=== PATIENT | female | born 1990 | race African-American/Black ===

== ENCOUNTER 2020-04-19 12:48 | Outpatient (CLI) | payer BC, SELFPAY ==
--- NOTE | ~2020-04-19 | US_ITS ---
EXAMINATION: US pelvic complete w TV EXAM DATE: 04/19/2020 13:29 INDICATION: R10.2 - Pelvic and perineal pain . TECHNIQUE: Pelvic transabdominal and transvaginal sonogram was performed. There are multiple graysca le and Doppler images available for interpretation. Comparison is made to prior examination from 06/13. FINDINGS: Uterus measures 8.5 x 4.1 x 4.1 cm, and is morphologically normal. Endometrial stripe erika sures 16 mm, within normal limits. There is no free pelvic fluid. Right adnexa: The ovary measures 3.0 x 3.5 x 2.6 cm and is morphologically normal. Ovarian vascular f low confirmed. Left adnexa: The ovary measures 2.6 x 2.5 x 1.9 cm and is morphologically normal. Ovarian vascular fl ow confirmed. IMPRESSION: 1. Unremarkable pelvic ultrasound exam. Reviewed, dictated and finalized at location B. AL NURSERY WORKER
== END 2020-04-19 12:49 | disposition home or self-care (01) ==
LOC: ANHIMG 12:55
PROVIDERS: PCP Internal Medicine; Visit Provider Obstetrics & Gynecology
DX: R10.2 Pelvic and perineal pain (principal)
CPT/HCPCS: 76830; 76856

== ENCOUNTER 2022-05-22 20:15 | Emergency (ER) | payer BC, SELFPAY ==
[2022-05-22 20:23] VITALS: BP 132/70; PULSE 75; RESP 16; TEMP 36.4; O2SAT 98
--- NOTE | 2022-05-22 21:04 | ED.WOUNDLAC ---
HPI - Wound/Laceration General Chief Complaint: Wound/Laceration Stated Complaint: laceration left leg Time Seen by Provider: 05/22/22 20:27 History of Present Illness HPI narrative: 31-year-old female here for evaluation of laceration sustained to her left thigh at some point during the night last night. Patient states that she woke up with the laceration and is unsure what it came from, believes it might of been a pin from dry cleaning. She placed a Band-Aid over it but had difficulty controlling the bleeding. She sent a photo to her primary care doctor who recommended ED eval for closure. Her tetanus is not up-to-date. Related Data Home Medications Medication Instructions Recorded Confirmed sertraline 25 mg tablet 25 mg PO DAILY 08/02/21 08/03/21 Allergies Allergy/AdvReac Type Severity Reaction Status Date / Time No Known Allergies Allergy Mild Verified 08/02/21 13:18 Review of Systems Review of Systems: Gen.: Denies fevers or chills Eyes: Denies eye pain or visual change ENT: Denies congestion Respiratory: Denies shortness of breath or cough CV: Denies chest pain or palpitations GI: Denies abdominal pain nausea, emesis or diarrhea denies burning, urgency, frequency or hematuria Musculoskeletal: denies back pain or muscle pain Neuro: Denies numbness, tingling, weakness or focal weakness Skin: Reports laceration to left thigh Except as documented, all other systems reviewed and negative [facility] Past Medical History Medical History Menorrhagia Urinary symptom or sign Surgical History Surgical History S/P lumpectomy, right breast 2011 Family History Family History Grandparent Family history of malignant neoplasm of breast Social History Social History Smoking status: Never smoker Second hand tobacco smoke exposure: No Alcohol intake: current Exam Narrative: Gen: Alert, oriented, no acute distress Eyes: EOMI, no icterus Pulm: Respirations even and unlabored, symmetric thorax expansion, no audible stridor or visible cyanosis CV: Regular rate per telemetry GI: No distension, no voluntary/involuntary guarding Neuro: AOx4, moves all extremities without apparent difficulty or weakness, follows commands Skin: There is a 1 cm superficial linear laceration to her left mid thigh with no active bleeding. Psych: Normal mood/affect, insight/judgement good, adequate fund of knowledge, recent/remote memory intact Course Vital Signs Vital signs: Vital Signs Temperature 97.5 F L 05/22/22 20: Pulse Rate 75 05/22/22 20:23 Respiratory Rate 16 05/22/22 20:23 Blood Pressure 132/70 05/22/22 20:23 Pulse Oximetry 98 05/22/22 20:23 Temperature 97.5 F L 05/22/22 20: Pulse Rate 75 05/22/22 20:23 Respiratory Rate 16 05/22/22 20:23 Blood Pressure 132/70 05/22/22 20:23 Pulse Oximetry 98 05/22/22 20:23 Procedures Laceration Laceration 1: Date: 05/22/22 Time: 21:00 Site: lower extremity Size (cm): 1 Description: linear Depth: simple, single layer Local Anesthetic: lidocaine 1% Amount of anesthesia used (mL): 2 Pre-repair: wound explored and irrigated ====== Skin Level ====== Skin layer closed with: other (4-o ethilon) Number of sutures: 3 Technique: simple, interrupted ====== Subcutaneous Layer ====== ====== Muscle Layer ====== ====== Tendon Layer ====== MDM - Wound/Laceration MDM Narrative Medical decision making narrative: 31-year-old female here for evaluation of a laceration to her left anterior thigh sustained at some point during the evening last night on an unknown object. Laceration was closed with simple interrupted sutur
[2022-05-22] MEDS: TETANUS,DIPHTHERIA,AC PERTUSSIS ADULT (0.5 ML) BOOSTRIX IM (21:49)
== END 2022-05-22 22:00 | disposition home or self-care (01) ==
PROVIDERS: Emergency Provider Physician Assistant; PCP Internal Medicine
DX: S71.112A Laceration without foreign body, left thigh, initial encounter (principal); X58.XXXA Exposure to other specified factors, initial encounter; Z23 Encounter for immunization
CPT/HCPCS: 12001; 90471; 90715; 99282

== ENCOUNTER 2022-08-02 09:32 | Emergency (ER) | payer BC, SELFPAY ==
--- NOTE | ~2022-08-02 | CT_ITS ---
EXAMINATION: CT cervical spine wo con DATE: 08/02/2022 14:04 INDICATION: Left neck pain. Left shoulder pain. TECHNIQUE: Computed tomography (CT) of the cervical spine was performed without intravenous contrast. Automated exposure control and iterative reconstruction technique were employed. The dose-length pro duct was 374.55 mGy-cm. COMPARISON: None FINDINGS: There is 4 degrees levocurvature of cervical spine. There is mild kyphosis of cervical spin e. Vertebral body heights and intervertebral disc heights are normal. The following disc levels are s pecifically discussed: C2-C3: There is no uncovertebral joint osteoarthritis. There is no facet joint osteoarthritis. There is no neural foraminal stenosis. There is no central canal stenosis. C3-C4: There is no uncovertebral joint osteoarthritis. There is mild bilateral facet joint osteoarthr itis. There is no neural foraminal stenosis. There is no central canal stenosis. C4-C5 through C6-C7: There is no uncovertebral joint osteoarthritis. There is no facet joint osteoart hritis. There is no neural foraminal stenosis. There is no central canal stenosis. C7-T1: There is no uncovertebral joint osteoarthritis. There is mild bilateral facet joint osteoarthr itis. There is no neural foraminal stenosis. There is no central canal stenosis. IMPRESSION: 1. Mild cervical facet joint osteoarthritis. Reviewed, dictated and finalized at location A.
--- NOTE | ~2022-08-02 | XR_ITS ---
EXAMINATION: XR shoulder LT min 2V DATE: 08/02/2022 14:11 INDICATION: Left shoulder pain. TECHNIQUE: 4 views of left shoulder were obtained. COMPARISON: None. FINDINGS: Bone alignment is normal. No fracture. Joint spaces are well maintained. IMPRESSION: 1. Normal left shoulder. Reviewed, dictated and finalized at location A. IMPRESSION: 1. Normal left shoulder.
[2022-08-02 09:40] VITALS: BP 115/65; PULSE 85; RESP 20; TEMP 36.7; O2SAT 99
[2022-08-02 13:22] VITALS: BP 119/81; PULSE 63; RESP 20; O2SAT 100
[2022-08-02] MEDS: KETOROLAC (*BKC) 60 MG/2 ML VIAL IM (13:38)
[2022-08-02] MEDS: diazePAM INJ (*CRX) 10 MG/2 ML SYRINGE 2 MG IM (13:43)
--- NOTE | 2022-08-02 15:00 | ED.UPPEXIN ---
HPI - Extremity Injury (Upper) General Chief Complaint: Extremity Injury, Upper Stated Complaint: Left arm injury, felt numb since injury Time Seen by Provider: 08/02/22 11:20 Source: patient Mode of arrival: ambulatory Limitations: no limitations History of Present Illness HPI narrative: Patient is a 31-year-old female who presents to the ED with c/o L sided neck and upper back pain. Patient reports she woke up in the middle of the night 1 week ago with discomfort in her left-sided neck, left upper back, left shoulder. Pain has persisted since then. Worse with movement of her left upper extremity, worse with turning head to the left. Patient has been taking Tylenol for the pain without much improvement. She does report some mild paresthesias/tingling in her left arm, but denies numbness. Denies weakness. Denies direct injury. Denies fever, chills, nausea, vomiting. Related Data Home Medications Medication Instructions Recorded Confirmed sertraline 25 mg tablet 25 mg PO DAILY 08/02/21 08/03/21 Allergies Allergy/AdvReac Type Severity Reaction Status Date / Time No Known Allergies Allergy Mild Verified 08/02/22 11:12 Review of Systems Review of Systems: CONSTITUTIONAL: Denies fever, chills, or sweats. CARDIOVASCULAR: Denies chest pain. RESPIRATORY: Denies dyspnea. GASTROINTESTINAL: Denies abdominal pain, nausea, vomiting. MUSCULOSKELETAL: See HPI. NEUROLOGIC: See HPI. All systems reviewed & are unremarkable except as noted in HPI and below PMFSH Past Medical History Medical History (Updated 08/02/22 @ 16:06 by Debi Weaver PA-C) Menorrhagia Surgical History Surgical History S/P lumpectomy, right breast 2011 Family History Family History Grandparent Family history of malignant neoplasm of breast Social History Social History Smoking status: Never smoker Second hand tobacco smoke exposure: No Alcohol intake: current Exam Narrative: GENERAL: Well appearing, well-nourished, non-toxic, in no acute distress. HEAD: Normocephalic, atraumatic. NECK: Supple. No adenopathy, no masses. No midline spinal tenderness. Left-sided paraspinous muscle tenderness and tightness, extending into the left upper trapezius region. Limited left-sided rotation of neck due to discomfort. RESPIRATORY: Airway patent, respirations nonlabored. Clear to auscultation bilaterally, no rales, rhonchi, wheezing. CARDIOVASCULAR: Regular rate and rhythm without murmurs, rubs, or gallops. Radial pulses 2+ and equal bilaterally. MUSCULOSKELETAL: Mild limited range of motion of left upper extremity due to discomfort. Discomfort reported in the left upper back/left neck with flexion and abduction of LUE greater than 90 degrees. Sensation intact. Tenderness to palpation over left upper back/trapezius region/posterior shoulder, extending into distal trapezius along inner scapula. No midline thoracic or lumbar spinal tenderness. SKIN: Warm, dry, normal color. No rashes. NEURO: A&O X3. Speech clear. Cranial nerves II-XII grossly intact. Steady gait. No ataxic movements. PSYCHIATRIC: Appropriate mood and affect. Normal interaction. Course Vital Signs Vital signs: Vital Signs Temperature 98.0 F 08/02/22 09:40 Pulse Rate 85 08/02/22 09:40 Respiratory Rate 20 08/02/22 09:40 Blood Pressure 115/65 08/02/22 09:40 Pulse Oximetry 99 08/02/22 09:40 Oxygen Delivery Room Air 08/02/22 09:40 Temperature 98.0 F 08/02/22 09:40 Pulse Rate 61 08/02/22 15:17 Respiratory Rate 16 08/02/22 15:17 Blood Pressure 121/80 08/02/22 15:17 Pulse Oximetry 100 08/02/22 15:17 Oxygen Delivery Room Air 08/02/22 09:40 MDM - Extremity Injury (Upper) MDM Narrative Medical decision making narrative: Patient's pain is consistent
[2022-08-02 15:17] VITALS: BP 121/80; PULSE 61; RESP 16; O2SAT 100
== END 2022-08-02 15:18 | disposition home or self-care (01) ==
PROVIDERS: Emergency Provider Physician Assistant; PCP Internal Medicine
DX: S46.812A Strain of other muscles, fascia and tendons at shoulder and upper arm level, left arm, initial encounter (principal); M47.812 Spondylosis without myelopathy or radiculopathy, cervical region; X58.XXXA Exposure to other specified factors, initial encounter
CPT/HCPCS: 72125; 73030; 96372; 99284; J1885; J3360

== ENCOUNTER 2024-03-01 12:36 | Outpatient (CLI) | payer BC, SELFPAY ==
--- NOTE | ~2024-03-01 | XR_ITS ---
Clinical Indication: Cough PA and lateral views of the chest: Comparison: 11/29/2007 Findings: The lungs are clear, without evidence of focal consolidation or pleural effusion. Cardiome diastinal silhouette is within normal limits. Bones and soft tissues are unremarkable. Impression: Normal chest. Reviewed, dictated and finalized at [facility]. L INSTALLER Impression: Normal chest.
== END 2024-03-01 12:37 | disposition home or self-care (01) ==
LOC: GOSHIMG 12:37
PROVIDERS: PCP Internal Medicine; Visit Provider Internal Medicine
DX: R05.9 Cough, unspecified (principal)
CPT/HCPCS: 71046

== ENCOUNTER 2024-09-08 10:46 | Outpatient (CLI) | payer BC, SELFPAY ==
--- OUTSIDE RECORDS SUMMARY | 2024-09-08 11:04 | XMS_ITS | Clinical Summary ---
Author Organization [facility] Address [address] [place] [address] Care Team Providers Care Director Hair Name Role Phone Unavailable Primary Care Provider Unavailabl e Source Comments [facility],non-owned Affiliates and Associated Physician Practices is amultiple site organization consisting of ambulatory clinics and hospital sitesin [place], [place], [place] and [place]. This disclosure is being madepursuant to the Care Everywhere program and may not contain all information available regarding this patient. Last updated 18.[facility] Allergies No known active allergies Medications * Be aware that medications may not be up to date on this document. Alwaysverify current medications with the patient. ALBUTEROL IN Active benzonatate (TESSALON) 100 MG capsule Take 100 mg by mouth 3 times daily as needed for Cough Active LORATADINE ALLERGY RELIEF PO Active Fluticasone Propionate (FLONASE NA) Active Social History Tobacco Use Types Packs/Day Years Used Date Smoking Tobacco: Never Smokeless Tobacco: Never Alcohol Use Standard Drinks/Week Comments Yes 0 (1 standard drink = 0.6 oz pur e alcohol) Comments No Sex and Gender Information Value Date Recorded Sex Assigned at Not on file Legal Sex Female 2:37 PM BROKE WORKER Gender Identity Not on file Sexual Orientation Not on file Last Filed Vital Signs Vital Sign Reading Time Taken Comments Blood Pressure 104/60 04/09/2019 11:40 AM BROKE WORKER Pulse 84 04/09/2019 11:40 AM BROKE WORKER Temperature 36.6 C (97.9 F) 04/09/2019 11:40 AM BROKE WORKER Respiratory Rate 16 04/09/2019 11:40 AM BROKE WORKER Oxygen Saturation 98% 04/09/2019 11:40 AM BROKE WORKER Inhaled Oxygen Concentration - - Weight 72.6 kg (160 lb) 04/09/2019 11:40 AM BROKE WORKER Height 152.4 cm (5') 04/09/2019 11:40 AM BROKE WORKER Body Mass Index 31.25 04/09/2019 11:40 AM BROKE WORKER Plan of Treatment Health Maintenance Due Date Last Done Comments HIV SCREENING 2004 HEPATITIS C SCREENING 12/20/2007 DTAP/TDAP/TD VACCINES (1 - Tdap) 2008 HEPATITIS B VACCINE (1 of 3 - 19+ 3-dose series) 2008 COVID-19 VACCINE (1 - 2023-2 5 season) 2023 DEPRESSION SCREENING 04/28/2024 INFLUENZA VACCINE (Season Ended) 2024 ZOSTER VACCINE (1 of 2) 12/25/2039 HIB VACCINE Aged Out No longer eligi ble based on patient's age to complete this topic HPV VACCINE Aged Out No longer eligi ble based on patient's age to complete this topic MENINGOCOCCAL (Group B) VACC INE SHARED DECISION-MAKING Aged Out No longer eligibl e based on patient's age to complete this topic MENINGOCOCCAL GROUPS A/C/Y/W VACCINE Aged Out No longer eligible b ased on patient's age to complete this topic PNEUMOCOCCAL VACCINE Aged Out No long er eligible based on patient's age to complete this topic Insurance [address] [place] [id number] [facility]
--- OUTSIDE RECORDS SUMMARY | 2024-09-08 11:04 | XMS_ITS | Clinical Summary ---
Author Organization [facility] Address [address] [place] [address] Care Team Providers Care Active Directory Specialist Name Role Phone Pretty Jarvis MD Primary Care Provider [phone] Lisa Robles MD Unavailable [phone] Allergies No known active allergies Medications albuterol HFA (PROVENTIL HFA,VENTOLIN HFA,PROAIR HFA) 90 mcg/actuation inhaler Inhale 2 puffs every 6 hours 05/29/2016 Active azithromycin (ZITHROMAX) 250 mg tablet 1 tablet (250 mg total) 04/12/2019 Active cetirizine 10 mg capsule Take by mouth Activ e ibuprofen (ADVIL,MOTRIN) 600 mg tablet 1 tablet (600 mg total) 04/12/2019 Active norgestimate-et hinyl estradioL (ORTHO TRI-CYCLEN LO) 0.18/0.215/0.25 mg-25 mcg per tablet Take by mouth Active norgestimate-et hinyl estradioL (TriNessa, 28,) 0.18/0.215/0.25 mg-35 mcg (28) per tablet Take 1 tablet by mouth daily 10/02/2015 Active predniSONE (DELTASONE) 10 mg tablet 40mg daily for 3 days then 30 mg daily for 2 days then 20mg daily for 1 day then stop 05/29/2016 Active predniSONE (DELTASONE) 20 mg tablet As per doctor's schedule 01/22/2013 Active clindamycin (CLEOCIN T) 1 % lotion 05/28/2023 Active sertraline (ZOLOFT) 50 mg tablet Take 1 tablet (50 mg total) by mouth daily 05/08/2023 Active tranexamic acid (LYSTEDA) 650 mg tablet TAKE 2 TABLETS BY MOUTH THREE TIMES DAILY NEEDED FOR HEAVY PERIODS. DO NOT USE FOR MORE THAN 5 DAYS 04/30/2023 Active tretinoin (RETIN-A) 0.05 % cream 05/28/2023 Active benzonatate (TESSALON) 100 mg capsuleIndicati ons:Cough Take 1 capsule (100 mg total) by mouth 3 (three) times a day as needed for cough 42 capsule 05/31/2023 Active Active Problems Problem Noted Date Diagnosed Date Acute pneumonia 05/31/2023 Low back pain radiating to left leg 01/06/2013 Sciatica 01/06/2013 Mass of breast 05/11/2010 Social History Tobacco Use Types Packs/Day Years Used Date Smoking Tobacco: Never Assessed Personal Safety Answer Date Recorded Getting School Help Needed Not on file 05/31 Comments Unknown Sex and Gender Information Value Date Recorded Sex Assigned at Not on file Legal Sex Female 6:04 AM INSPECTOR TOYS Gender Identity Not on file Sexual Orientation Not on file Last Filed Vital Signs Vital Sign Reading Time Taken Comments Blood Pressure 118/72 05/31/2023 11:21 AM INSPECTOR TOYS Pulse 71 05/31/2023 11:21 AM INSPECTOR TOYS Temperature 36.7 C (98.1 F) 05/31/2023 11:21 AM INSPECTOR TOYS Respiratory Rate 16 05/31/2023 11:21 AM INSPECTOR TOYS Oxygen Saturation 98% 05/31/2023 11:21 AM INSPECTOR TOYS Inhaled Oxygen Concentration - - Weight 79.4 kg (175 lb) 05/31/2023 11:21 AM INSPECTOR TOYS Height 165.1 cm (5' 5 ) 05/31/2023 11:21 AM INSPECTOR TOYS Body Mass Index 29.12 05/31/2023 11:21 AM INSPECTOR TOYS Plan of Treatment Health Maintenance Due Date Last Done Comments Cervical Cancer Screening 1989 Depression Screening 1989 Hepatitis C Screening 1989 Varicella Vaccines (1 of 2 - 13+ 2-dose series) 2002 Hepatitis B Screening 12/25/2007 Regular Well Visit/Exam 18-64 12/25/2007 Covid-19 Vaccine ( season) 2023 04/17/2022, 03/02/2021, 06/13/2020, Additional history exists Influenza Vaccine (Season Ended) 2024 03/11/2023, 12/27/2021, 01/29/2021 DTaP/Tdap/Td Vaccine (2 - Td or Tdap) 05/22/2032 05/22/2022 HPV Vaccines Aged Out No longer eligi ble based on patient's age to complete this topic Pneumococcal vaccine <65 Aged Out No longer eligible based on patient's age to complete this topic Insurance [facility] CHO[facility] PLUS [employer] OOS Care Teams Active Directory Specialist Relationship Specialty Start Date End Date Pretty Jarvis MD [address] [place] [address] PCP - General 05/28/19 Lisa Robles MD [address] [address] Family Medicine 05/28/19
--- OUTSIDE RECORDS SUMMARY | 2024-09-08 11:04 | XMS_ITS | Clinical Summary ---
Author Organization [facility] Address [address] [place] [id number] Care Team Providers Care Pin Or Clip Fastener Name Role Phone Unavailable Primary Care Provider Unavailabl e Social History Tobacco Use Types Packs/Day Years Used Date Smoking Tobacco: Never Assessed Comments Unknown Sex and Gender Information Value Date Recorded Sex Assigned at Not on file Legal Sex Female 9:02 AM CLINICAL REHABILITATION COORDINATOR Gender Identity Not on file Sexual Orientation Not on file Plan of Treatment Health Maintenance Due Date Last Done Comments Hepatitis C Virus (HCV) Screening 1989 TdaP Immunization 1989 Hepatitis B Immunization (1 of 3 - 19+ 3-dose series) 2008 Pap Smear 2010 Cervical Cancer Screening (CCS) 12/25/2019 HPV/Cotest 12/25/2019 Influenza Immunization (#1) 2023 SARS-COV-2 Immunization ( season) 2023 Respiratory Syncytial Virus (RSV) Immunization (Adult) (1 - 1-dose 75+ series) 2064 Meningococcal Immunization (ACWY) Aged Out No longer eligible based on patient's age to complete this topic Pneumococcal Immunization Combined Aged Out No longer eligible based on patient's age to complete this topic Rotavirus Immunization Aged Out No lo nger eligible based on patient's age to complete this topic
--- OUTSIDE RECORDS SUMMARY | 2024-09-08 11:04 | XMS_ITS | Referral Summary ---
Author Organization [facility] Address [address] [place] [address] Care Team Providers Care Noodle Maker Name Role Phone Pretty Jarvis MD Primary Care Provider [phone] Lisa Robles MD Unavailable [phone] Allergies No known active allergies Medications albuterol [...] on file Legal Sex Female 6:04 AM FILLING ROOM OPERATOR Gender Identity Not on file Sexual Orientation Not on file Last Filed Vital Signs Vital Sign Reading Time Taken Comments Blood Pressure 118/72 05/31/2023 11:21 AM FILLING ROOM OPERATOR Pulse 71 05/31/2023 11:21 AM FILLING ROOM OPERATOR Temperature 36.7 C (98.1 F) 05/31/2023 11:21 AM FILLING ROOM OPERATOR Respiratory Rate 16 05/31/2023 11:21 AM FILLING ROOM OPERATOR Oxygen Saturation 98% 05/31/2023 11:21 AM FILLING ROOM OPERATOR Inhaled Oxygen Concentration - - Weight 79.4 kg (175 lb) 05/31/2023 11:21 AM FILLING ROOM OPERATOR Height 165.1 cm (5' 5 ) 05/31/2023 11:21 AM FILLING ROOM OPERATOR Body Mass Index 29.12 05/31/2023 11:21 AM FILLING ROOM OPERATOR Plan of Treatment Not on file Insurance [facility] [address] [employer] OOS Care Teams Noodle Maker Relationship Specialty Start Date End Date Pretty Jarvis MD [place] [address] PCP - General 05/28/19 Lisa Robles MD [address] [address] Family Medicine 05/28/19
--- OUTSIDE RECORDS SUMMARY | 2024-09-08 11:04 | XMS_ITS | Clinical Summary ---
Author Organization [facility] Address [facility] [place] [address] Care Team Providers Care Cheese Maker Name Role Phone Yenny Curtis NP Primary Care Provider [phone] Allergies No known active allergies Medications Cetirizine HCl 10 MG Cap Take by mouth Active PREGNYL 06180 units Recon Soln 5 Active vitamin D2, ergocalciferol, (DRISDOL) 1.25 mg capsule TAKE 1 CAPSULE BY MOUTH 1 TIME WEEKLY DIRECTED 4 Active estradiol (ESTRACE) 2 MG tablet Take 1 tablet (2 mg total) by mouth 3 (three) times daily. 5 Active progesterone 50 MG/ML injection 5 Active sertraline (ZOLOFT) 50 MG tablet 5 Active tranexamic acid (LYSTEDA) 650 MG tablet TAKE 2 TABLETS BY MOUTH THREE TIMES DAILY NEEDED FOR HEAVY PERIODS. DONT USE FOR MORE THAN 5 DAYS. 4 Active clindamycin (CLEOCIN T) 1 % gelIndications: Acne vulgaris Apply topically 2 (two) times daily. 60 g 2 5 Active albuterol sulfate HFA 108 (90 Base) MCG/ACT inhaler Inhale 2 puffs into the lungs every 4 (four) hours as needed. 5 Active azelastine 0.1 % nasal sprayIndication s:Viral syndrome 2 sprays by Nasal route 2 (two) times daily as needed for Rhinitis. Use in each nostril as directed 10 mL 3 5 Active Active Problems Problem Noted Date Diagnosed Date Major depressive disorder, recurrent episode, mo derate 06/05/2024 EMILY (generalized anxiety disorder) 06/05/2024 Allergic rhinitis, unspecifi ed seasonality, unspecified trigger 06/04/2024 Acne vulgaris 06/04/2024 At risk for fertility problems 06/04/2024 Comments Yes Resolved Problems Problem Noted Date Diagnosed Date Resolved Date Idiopathic female infertility 06/04/2024 06/05/2024 Encounters Date Type Department Care Team Description 07/22/2024 9:20 AM CDT Office Visit [facility] [place] [address] [place] [address] Yenny Curtis NP Sinus Problem 07/22/2024 Travel 07/07/2024 [facility] [place] [address] [place] [address] Yenny Curtis NP from Last 3 Months Immunizations Immunization Administration Dates Next Due Influenza Adult (Generic) 03/11/2023,12/27/2021, 01/29/2021 Tdap (Generic) 05/22/2022 Family History Medical History Relation Comments Diabetes Maternal Grandfather Breast Cancer Maternal Grandmother 29 Relation Status Comments Maternal Grandfather Maternal Grandmother Social History Tobacco Use Types Packs/Day Years Used Date Smoking Tobacco: Never Passive Smoke Exposure: Never Smokeless Tobacco: Never Tobacco Cessation:Counseling Given: No Alcohol Use Standard Drinks/Week Comments Yes 0 (1 standard drink = 0.6 oz pur e alcohol) social PHQ-2 Answer Date Recorded Patient Health Questionnaire-2 Score 1 06/04/2024 Comments Yes Sex and Gender Information Value Date Recorded Sex Assigned at Female 06/04/2024 4:22 PM DATABASE DESIGNER Legal Sex Female 10:45 AM DATABASE DESIGNER Gender Identity Female 06/04/2024 4:22 PM DATABASE DESIGNER Sexual Orientation Straight 06/04/2024 4: 22 PM DATABASE DESIGNER Last Filed Vital Signs Vital Sign Reading Time Taken Comments Blood Pressure 109/78 07/22/2024 9:41 AM CDT Pulse 90 07/22/2024 9:41 AM CDT Temperature 36.9 C (98.5 F) 07/22/2024 9:41 AM CDT Respiratory Rate 18 07/22/2024 9:41 AM CDT Oxygen Saturation 97% 07/22/2024 9:41 AM CDT Inhaled Oxygen Concentration - - Weight 76.4 kg (168 lb 6.4 oz) 07/22/2024 9:41 A M CDT Height 165.1 cm (5' 5 ) 07/22/2024 9:41 AM CDT Body Mass Index 28.02 07/22/2024 9:41 AM CDT Plan of Treatment Health Maintenance Due Date Last Done Comments Cervical Cancer Screening Pap Smear (Age 30 to 64) Every 3 Years 1989 Annual Physical 1992 Hepatitis C 12/25/2007 Hepatitis B Vaccines (1 of 3 - 19+ 3-dose series) 2008 Pneumococcal Vaccine: Pediatrics (0 to 5 Years) and At-Risk Patients (6 to 49 Years) (1 of 2 - PCV) 2008 Cervical Cancer Screening Pap with HPV Testing (Age 30 to 64) Every 5 Years 12/25/2019 Cervical Cancer Screening with HPV 12/25/2019 COVID-19 Vaccine ( season) 2023 04/17/2022, 03/02/2021, 06/13/2020, Additional history exists DTaP, Tdap and Td Vaccines (2 - Td or Tdap) 05/22/2032 05/22/2022 RSV Immunization or 60+ Years (1 - 1-dose 75+ series) 2064 PHQ-2 (Physician [place]) Completed 06/04/2024 HPV Vaccines Aged Out No longer eligi ble based on patient's age to complete this topic Meningococcal B Vaccine Aged Out No l onger eligible based on patient's age to complete this topic Meningococcal Vaccine Aged Out No arturo brando eligible based on patient's age to complete this topic RSV Immunizations Under 20 Months Aged Out No longer eligible based on patient's age to complete this topic Procedures Procedure Name Priority Date/Time Associated Diagnosis Comments CORONAVIRUS (COVID-19) INFLUENZA A & B ANTIGEN IA PANEL Routine 07/22/2024 Acute non-recurrent maxillary sinusitis from Last 3 Months Results * CORONAVIRUS (COVID-19) INFLUENZA A & B ANTIGEN IA PANEL (07/22/2024) CORONAVIRUS ANTIGEN IA NEGATIVE NEGATIVE [address], [place] INFLUENZA A NEGATIVE NEGATIVE MG[address], [place] INFLUENZA B NEGATIVE NEGATIVE MG[address], [place] Internal Control: VALID VALID [address] [place] NASAL STRUCTURE / Unknown 07/22/2024 Yenny Curtis NP MICROBIOLOGY - GENERAL CEDRIC LAMB Final Result [address], [place] [address] [place] [address], from Last 3 Months Insurance Care Teams Cheese Maker Relationship Specialty Start Date End Date Yenny Curtis NP [address] [place] [address] PCP - General NURSE PRACTITIONER 04/13/24
[2024-09-08 11:38] LABS: Mean Corpuscular HGB Conc 30.6 g/dl (32-36); Mean Corpuscular Volume 78.4 fl (80-100); Mean Platelet Volume 11.8 fl (7.4-10.4); Platelet Count Result 212 k/mm3 (150-375); Red Blood Count 4.59 M/mm3 (4.2-5.4); Red Cell Distribution Width 14.4 % (11.5-14.5); White Blood Count 6.4 K/mm3 (4.5-10.0)
[2024-09-08 11:44] LABS: Add Urine Microscopic? YES; Appearance Urine Clear (Clear); Bilirubin Urine Negative (Negative); Blood Urine Negative (Negative); Color Urine Dark Yellow (Yellow); Glucose Urine UA Negative (Negative); Ketones Urine Negative (Negative); Leukocyte Esterase Ur Negative LEU/UL (Negative); Nitrate Urine Negative (Negative); Protein Urine Negative (Negative); Specific Grav Ur 1.017 (1.001-1.035); Urobilinogen Urine 0.2 mg/dL (<2.0); pH Urine 6.5 (5.0-9.0)
[2024-09-08 12:29] LABS: HIV 1/2 Ab P24 Ag Result Negative (Negative)
[2024-09-08 12:30] LABS: Syphilis IgG/IgM Antibody Negative (Negative)
[2024-09-08 12:32] LABS: Thyroid Stimulating Hormone 0.914 uIU/mL (0.465-4.680)
[2024-09-08 12:46] LABS: Hepatitis B Surface Antigen Negative (Negative)
[2024-09-08 13:03] LABS: Hepatitis C Virus Antibody Negative (Negative)
[2024-09-09 21:29] LABS: Hematocrit 36.7 % (35.0-45.0); Hemoglobin 11.1 g/dL (11.7-15.5); MCV 79.3 fL (80.0-100.0); Red Blood Cell Count 4.63 Million/uL (3.80-5.10)
== END 2024-09-08 10:47 | disposition home or self-care (01) ==
LOC: ANHLAB 10:48
PROVIDERS: PCP Nurse Practitioner; Visit Provider Obstetrics & Gynecology
DX: Z34.90 Encounter for supervision of normal pregnancy, unspecified, unspecified trimester (principal)
CPT/HCPCS: 36415; 81001; 83021; 84443; 85027; 86593; 86703; 86762; 86787; 86803; 86850; 86900; 86901; 87086; 87340; G0432

== ENCOUNTER 2024-10-28 14:16 | Observation (INO) | payer BC, SELFPAY ==
--- OUTSIDE RECORDS SUMMARY | 2024-10-28 14:25 | XMS_ITS | Clinical Summary ---
Author Organization [facility] Address [address] [place] [address] Care Team Providers Care Leach Cell Operator Name Role Phone Pretty Jarvis MD Primary Care Provider [phone]- [phone] Lisa Robles MD Unavailable [phone] Allergies No known active allergies Medications albuterol [...] on file Legal Sex Female 6:04 AM DEPOT MANAGER Gender Identity Not on file Sexual Orientation Not on file Last Filed Vital Signs Vital Sign Reading Time Taken Comments Blood Pressure 118/72 05/31/2023 11:21 AM DEPOT MANAGER Pulse 71 05/31/2023 11:21 AM DEPOT MANAGER Temperature 36.7 C (98.1 F) 05/31/2023 11:21 AM DEPOT MANAGER Respiratory Rate 16 05/31/2023 11:21 AM DEPOT MANAGER Oxygen Saturation 98% 05/31/2023 11:21 AM DEPOT MANAGER Inhaled Oxygen Concentration - - Weight 79.4 kg (175 lb) 05/31/2023 11:21 AM DEPOT MANAGER Height 165.1 cm (5' 5) 05/31/2023 11:21 AM DEPOT MANAGER Body Mass Index 29.12 05/31/2023 11:21 AM DEPOT MANAGER Plan of Treatment Health Maintenance Due Date [...] patient's age to complete this topic Insurance [facility] CHOICE PLUS [facility] HMO/PPO Address: [address] [address] [place] [address] [employer] Care Teams Leach Cell Operator Relationship Specialty Start Date End Date Pretty Jarvis MD PCP - General 05/28/19 Lisa Robles MD [address] [address] Family Medicine 05/28/19
--- OUTSIDE RECORDS SUMMARY | 2024-10-28 14:25 | XMS_ITS | Referral Summary ---
Author Organization [facility] Address [address] [place] [address] Care Team Providers Care Field Marketing Representative Name Role Phone Pretty Jarvis MD Primary Care Provider [phone] Lisa Robles MD Unavailable [phone] Allergies No known active allergies Medications albuterol [...] on file Legal Sex Female 6:04 AM INFORMATION SYSTEMS SPECIALIST Gender Identity Not on file Sexual Orientation Not on file Last Filed Vital Signs Vital Sign Reading Time Taken Comments Blood Pressure 118/72 05/31/2023 11:21 AM INFORMATION SYSTEMS SPECIALIST Pulse 71 05/31/2023 11:21 AM INFORMATION SYSTEMS SPECIALIST Temperature 36.7 C (98.1 F) 05/31/2023 11:21 AM INFORMATION SYSTEMS SPECIALIST Respiratory Rate 16 05/31/2023 11:21 AM INFORMATION SYSTEMS SPECIALIST Oxygen Saturation 98% 05/31/2023 11:21 AM INFORMATION SYSTEMS SPECIALIST Inhaled Oxygen Concentration - - Weight 79.4 kg (175 lb) 05/31/2023 11:21 AM INFORMATION SYSTEMS SPECIALIST Height 165.1 cm (5' 5) 05/31/2023 11:21 AM INFORMATION SYSTEMS SPECIALIST Body Mass Index 29.12 05/31/2023 11:21 AM INFORMATION SYSTEMS SPECIALIST Plan of Treatment Not on file Insurance [facility] CHOICE PLUS [employer] OOS Care Teams Field Marketing Representative Relationship Specialty Start Date End Date Pretty Jarvis MD PCP - General 05/28/19 Lisa Robles MD [address] [address] Family Medicine 05/28/19
--- OUTSIDE RECORDS SUMMARY | 2024-10-28 14:25 | XMS_ITS | Clinical Summary ---
Author Organization [facility] Address [address] [place] [address] Care Team Providers Care Dry Wall Finisher Name Role Phone Unavailable Primary Care Provider Unavailabl e Social History Tobacco Use Types Packs/Day Years Used Date Smoking Tobacco: Never Assessed Comments Unknown Sex and Gender Information Value Date Recorded Sex Assigned at Not on file Legal Sex Female 9:02 AM TENNIS CENTRE MANAGER Gender Identity Not on file Sexual [...]
--- OUTSIDE RECORDS SUMMARY | 2024-10-28 14:25 | XMS_ITS | Clinical Summary ---
Author Organization [facility] Address [facility] [place] [address] Care Team Providers Care Clipper Counters Name Role Phone Yenny Curtis NP Primary Care Provider [phone] Allergies No known active allergies Medications Cetirizine HCl 10 MG Cap Take by mouth Active PREGNYL 51864 units Recon Soln 5 Active vitamin D2, [...] Resolved Date Idiopathic female infertility 06/04/2024 06/05/2024 Immunizations Immunization Administration Dates Next Due Influenza [...] Sex Assigned at Female 06/04/2024 4:22 PM MIXER WHIPPED TOPPING Legal Sex Female 10:45 AM MIXER WHIPPED TOPPING Gender Identity Female 06/04/2024 4:22 PM MIXER WHIPPED TOPPING Sexual Orientation Straight 06/04/2024 4: 22 PM MIXER WHIPPED TOPPING Last Filed Vital Signs Vital Sign Reading [...] A M CDT Height 165.1 cm (5' 5) 07/22/2024 9:41 AM CDT Body Mass Index [...] Screening with HPV 12/25/2019 COVID-19 Vaccine ( - season) 2023 04/17/2022, 03/02/2021, 06/13/2020, Additional history exists DTaP, Tdap and Td Vaccines (2 - Td or Tdap) 05/22/2032 05/22/2022 RSV Immunization or 60+ Years (1 - 1-dose 75+ series) 2064 PHQ-2 (Physician [place]) Completed 06/04/2024 HPV Vaccines Aged Out No [...] patient's age to complete this topic Insurance [place] [address] [facility] Care Teams Clipper Counters Relationship Specialty Start Date End Date Yenny Curtis NP [address] [facility] [address] [place] [address] PCP - General NURSE PRACTITIONER 04/13/24
--- OUTSIDE RECORDS SUMMARY | 2024-10-28 14:25 | XMS_ITS | Clinical Summary ---
Author Organization [facility] Address [address] [place] [address] Care Team Providers Care Residential Carpet Installer Name Role Phone Unavailable Primary Care Provider Unavailabl e Source Comments [facility],non-owned Affiliates and Associated Physician Practices is amultiple site organization consisting of ambulatory clinics and hospital sitesin [place], [place], [place] and [place]. This disclosure is being madepursuant to the Care Everywhere program and may not contain all information available regarding this patient. Last updated 18.[facility] Allergies No known active allergies Medications * Be aware that medications may not be up to date on this document. Alwaysverify current medications with the patient. ALBUTEROL IN Active benzonatate (TESSALON) 100 MG capsule Take 100 mg by mouth 3 times daily as needed for Cough Active LORATADINE ALLERGY RELIEF PO Active Fluticasone Propionate (FLONASE NA) Active Encounters Date Type Department Care Team Description 10/15/2024 8:15 AM CDT - 10/15/2024 11:59 PM CDT Hospital Encounter [facility] Women's Health Maternal & Care [facility] [place] [address] Alverto Mabry MD Discharge Disposition: Home or Self Care from Last 3 Months Social History Tobacco Use Types Packs/Day Years Used Date Smoking Tobacco: Never Smokeless Tobacco: Never Alcohol Use Standard Drinks/Week Comments Yes 0 (1 standard drink = 0.6 oz pur e alcohol) Estimated Date of Delivery Comme nts Yes 03/04/2025 Based on Embryo Transfer Sex and Gender Information Value Date Recorded Sex Assigned at Not on file Legal Sex Female 2:37 PM FLIGHT PARAMEDIC Gender Identity Not on file Sexual Orientation Not on file Last Filed Vital Signs Vital Sign Reading Time Taken Comments Blood Pressure 104/60 04/09/2019 11:40 AM FLIGHT PARAMEDIC Pulse 84 04/09/2019 11:40 AM FLIGHT PARAMEDIC Temperature 36.6 C (97.9 F) 04/09/2019 11:40 AM FLIGHT PARAMEDIC Respiratory Rate 16 04/09/2019 11:40 AM FLIGHT PARAMEDIC Oxygen Saturation 98% 04/09/2019 11:40 AM FLIGHT PARAMEDIC Inhaled Oxygen Concentration - - Weight 72.6 kg (160 lb) 04/09/2019 11:40 AM FLIGHT PARAMEDIC Height 152.4 cm (5') 04/09/2019 11:40 AM FLIGHT PARAMEDIC Body Mass Index 31.25 04/09/2019 11:40 AM FLIGHT PARAMEDIC Plan of Treatment Upcoming Encounters Date Type Department Care Team (Late st Contact Info) Description 11/12/2024 8:15 AM CDT Appointment [facility] Women's Health Maternal & Care [address] [place], [place] [id number] Health Maintenance Due Date Last Done Comments HIV SCREENING 2004 HEPATITIS C SCREENING 12/20/2007 DTAP/TDAP/TD VACCINES (1 - Tdap) 2008 HEPATITIS B VACCINE (1 of 3 - 19+ 3-dose series) 2008 PAP SMEAR 2010 COVID-19 VACCINE ( season) 2023 04/17/2022, 03/02/2021, 06/13/2020, Additional history exists DEPRESSION SCREENING 04/28/2024 OB-TDAP CURRENT 12/03/2024 05/22/2022 INFLUENZA VACCINE (Season Ended) 2024 03/11/2023, 12/27/2021, 01/29/2021 Respiratory Syncytial Virus (RSV) Vaccine Pt: or over 60 yrs (1 - Risk 1-dose series) 01/07/2025 ZOSTER VACCINE (1 of 2) 12/25/2039 HIB VACCINE Aged Out No longer eligi ble based on patient's age to complete this topic HPV VACCINE Aged Out No longer eligi ble based on patient's age to complete this topic MENINGOCOCCAL (Group B) VACCINE SHARED DECISION-MAKING Aged Out No longer eligible based on patient's age to complete this topic MENINGOCOCCAL GROUPS A/C/Y/W VACCINE Aged Out No longer eligible based on patient's age to complete this topic PNEUMOCOCCAL VACCINE Aged Out No long er eligible based on patient's age to complete this topic Procedures Procedure Name Priority Date/Time Associated Diagnosis Comments SONOGRAM - COMPLETE Routine 10/15/2024 8 :18 AM CDT resulting from in vitro fertilization, antepartum ([facility]) Encounter for anatomic survey ([facility]) 19 weeks gestation of ([facility]) from Last 3 Months Results * Sonogram - Complete (10/15/2024 8:18 AM CDT) Linked Results Indication ======== IVF , S/P 4 unsuccessful IUIs AMA 35 years, Declined genetic screening History ====== OB History 1 Maternal Assessment Physical Exam Height 165 cm, 5 ft 5 in. Weight 81 kg, 178 lb. Initial weight 73 kg, 160 lb. BMI 29.62 kg/m . Initial BMI 26.63 kg/m . Weight gain 8 kg, 18 lb Method ====== Transabdominal and transvaginal ultrasound examination. View: Suboptimal view: limited by position ========= [place] . Number of fetuses: 1 Dating ====== Date Details Gest. age MINH LMP 05/26/2024 20 w + 2 d 03/02/2025 Stated MINH 20 w + 1 d 03/03/2025 U/S 10/15/2024 based upon AC, BPD, Femur, HC 20 w + 0 d 03/04/2025 Assigned dating based on stated MINH, selected on 10/15/2024 20 w + 1 d 03/03/2025 General Evaluation Cardiac activity present. FHR 153 bpm. Presentation: breech Placenta: Placental site: posterior, low-lying. 1.5 cm from internal os Umbilical cord: Cord vessels: 3 vessel cord. Insertion site: normal insertion Amniotic fluid: Amount of AF: normal. MVP 5.7 cm Biometry BPD 41.8 mm 18w 5d 5% Hadlock HC 169.8 mm 19w 4d 19% Hadlock Cerebellum tr 20.4 mm 47% [place] Nuchal fold 4.8 mm AC 155.7 mm 20w 5d 64% Hadlock Femur 35.2 mm 21w 1d 76% Hadlock Humerus 33.7 mm 21w 3d 91% Jennifer HC / AC 1.09 -/- 10% Hadlock Weight Calculation: EFW 371 g 75% Hadlock EFW (lb,oz) 0 lb 13 oz EFW by Hadlock ([id number]) Head / Face / Neck Biometry: Home Care Chaplain 5.1 mm CM 1.8 mm <1% Nicolaides appropriate Growth Overview Exam date GA BPD (mm) HC (mm) AC (mm) FL (mm) HL (mm) EFW (g) 10/15/2024 20w 1d 41.8 5% 169.8 19% 155.7 64% 35.2 76% 33.7 91% 371 75% Anatomy The following structures appear normal: Head / Neck Cranium. Lateral ventricles. Choroid plexus. Midline falx. Cavum septi pellucidi. Cerebellum. Cisterna magna. Thalami. Nuchal fold. Face Lips. Nose. Nasal bone. Orbits. Heart / Thorax Situs. Diaphragm. Abdomen Cord insertion. Stomach. Kidneys. Bladder. Bowel. Genitals. Spine Cervical spine. Thoracic spine. Lumbar spine. Sacral spine. Extremities / Skeleton Arms. Legs. The following structures could not be adequately visualized: Face Profile. Heart / Thorax 4-chamber view. RVOT view. LVOT view. 3-vessel view. 6-nsyxrj-feuiywm view. Aortic arch view. Bicaval view. Ductal arch view. Great vessels. Right lung. Left lung. Extremities / Skeleton Hands. Feet. Maternal Structures Cervix reassuring Approach - Transvaginal: Cervical length 4.90 cm Right Ovary Normal Left Ovary Not visualized Impression ========= Single, live, intrauterine at 20w 1d The size & amniotic fluid volume are normal No malformations were seen within the limitations of ultrasound Endovaginal U/S to better view cervix & placenta shows normal cervical length & possibly low-lying posterior placenta 15 mm from os (however I suspect lower uterine segment contraction is making placenta appear closer to cervix) Comment ======== U/S cannot detect all structural, genetic, or functional , placental, or maternal abnormalities REVISED REPORT (10/20/2024): Review of endovaginal U/S video clip shows a 19x11 mm echogenic mass anterior to distal cervix (unable to tell if cervix vs vagina vs adnexa vs bowel etc). Will reassess at follow-up U/S & would advise sterile speculum exam & digital vaginal exam to determine if mass is detectable. D/W Dr Robb Follow-up ======== 4 weeks to complete anatomy & reassess placenta/cervix Coding ====== Procedures 60343: US Preg Uterus Detailed 15539: US Preg Uterus Transvaginal [facility] katena PACS Anatomical Region Laterality Modality Other 10/15/2024 8:18 AM CDT Paul Robb MD [facility] ORDERABLES Edited Result - Final from Last [address] [place] [address] [facility]
[2024-10-28] MEDS: ONDANSETRON HCL ODT 4 MG TABLET PO (14:59)
[2024-10-28 15:05] LABS: Add Urine Microscopic? YES; Appearance Urine Cloudy (Clear); Glucose Urine UA Negative (Negative); Leukocyte Esterase Ur Trace LEU/UL (Negative); Nitrate Urine Negative (Negative); Non Pathogenic Casts 0-2; Specific Grav Ur 1.009 (1.001-1.035)
[2024-10-28 15:16] VITALS: BMI 29.7
--- NOTE | 2024-10-28 15:16 | LDADM ---
This patient, Nayeli Cowart, was admitted to [facility] on 10/28/24 at 14:16. Plans for labor, pain management and were discussed with patient. Patient/family oriented to hospital policies and general routines including ID bracelet, bed and alarms, visiting hours, pain management, procedures, bathroom and other care routines, personal items, smoking policy, room service/diet and guest tray routines, security routines, and visiting hours. Patient/Family are encouraged to report perceived risks to care and to ask questions if they do not understand what they are told or what they should do. See OBIX for further documentation.
[2024-10-28] MEDS: NITROFURANTOIN MONOHYD MACROCR 100 MG CAP PO (15:51)
--- NOTE | 2024-10-28 16:00 | PC.NURSE ---
1528 Dr. Saavedra at bedside. reviewed urine labs and performed SVE. MD reported pt. cervix is closed thick and high. MD reviewed plan of care with Pt . Orders received to discharge pt home on macrobid and zofran prescription.
--- NOTE | 2024-11-23 16:25 | P.PNOB_ITS ---
OB - Triage/Final Diagnosis Visit Information Comments/Additional reasons for admission: I have assessed the risk for this patient, Nayeli Cowart, and determined that she would benefit from observation care. Evaluation Laboratory results: Laboratory Tests 10/28/24 14:52 Urine Color Yellow Urine Appearance Cloudy H Urine pH 8.0 Ur Specific [place] 1.009 Urine Protein Negative Urine Glucose (UA) Negative Urine Ketones Negative Ur Blood (Man) Negative Urine Nitrate Negative Urine Bilirubin Negative Urine Urobilinogen 0.2 Leukocyte Esterase Rfl Trace H Urine RBC 3-5 H Urine WBC 0-5 Ur Squamous Epith Cells None seen Urine Bacteria 1+ H Urine Casts 0-2 Final Diagnosis (1) Cramping complicating , antepartum: Code(s): O26.899 - Other specified related conditions, unspecified trimester; R10.9 - Unspecified abdominal pain Status: Acute
== END 2024-10-28 15:55 | disposition home or self-care (01) ==
PROVIDERS: Admitting Provider Obstetrics & Gynecology; PCP Nurse Practitioner Family; Visit Provider Obstetrics & Gynecology
DX: O26.892 Other specified pregnancy related conditions, second trimester (principal); R10.9 Unspecified abdominal pain; Z3A.22 22 weeks gestation of pregnancy
CPT/HCPCS: 81001; 87086; A9270; G0378; G0379

== ENCOUNTER 2025-02-24 10:56 | Outpatient (CLI) | payer BC, SELFPAY ==
[2025-02-24] VITALS (11 sets, daily range): BP systolic 117–130; BP diastolic 70–82; PULSE 63–73; RESP 18; TEMP 36.4; BMI 33.7
[2025-02-24 11:33] LABS: Hematocrit 36.1 % (37.0-47.0); Hemoglobin 11.4 g/dL (12.0-15.0); Immature Granulocyte Percent A 0.3 % (0-0.5); Immature Platelet Fraction Pct 8.2 % (0.9-11.2); Lymphocytes Absolute Auto 1.57 K/mm3 (0.9-3.2); Mean Corpuscular HGB Conc 31.6 g/dl (32-36); Mean Corpuscular Hemoglobin 24.3 pg (26-34); Mean Corpuscular Volume 77.0 fl (80-100); Nucleated Red Blood Cells Absolute Auto 0.000 K/mm3 (0.0-0.012); Nucleated Red Blood Cells Perc 0.0 % (0.0-0.2); Platelet Count Result 134 k/mm3 (150-375); Red Blood Count 4.69 M/mm3 (4.2-5.4); White Blood Count 6.3 K/mm3 (4.5-10.0)
[2025-02-24 11:56] LABS: Alanine Aminotransferase 17 U/L (6-35); Albumin Level 3.2 g/dL (3.5-5.1); Alkaline Phosphatase 168 U/L (38-126); Anion Gap 5 mmol/L (4-12); Aspartate Amino Transferase 27 U/L (14-36); Bilirubin,Total 0.4 mg/dL (0.2-1.3); Blood Urea Nitrogen 9 mg/dL (7-17); Calcium 8.2 mg/dL (8.4-10.2); Carbon Dioxide 21 mmol/L (22-30); Chloride 107 mmol/L (98-107); Estimated CRCL calculation 97 ml/min; Estimated Glomerular Filt Rate > 60; Glucose 76 mg/dL (65-110); Potassium 3.7 mmol/L (3.4-5.0); Sodium 133 mmol/L (137-145); Total Protein 6.2 g/dL (6.3-8.2); Uric Acid 4.2 mg/dL (2.5-7.5)
[2025-02-24 11:58] LABS: Add Urine Microscopic? YES; Appearance Urine Cloudy (Clear); Glucose Urine UA Negative (Negative); Leukocyte Esterase Ur 1+ LEU/UL (Negative); Need Manual Microscopic Reviewed; Nitrate Urine Negative (Negative); Specific Grav Ur 1.018 (1.001-1.035)
[2025-02-24 12:04] LABS: Total Protein Urine Random 8 mg/dL; Ur Ttl Prot Creatinine Ratio 0.04 mg/mg (0-0.20)
--- OUTSIDE RECORDS SUMMARY | 2025-02-24 12:10 | XMS_ITS | Clinical Summary ---
Author Organization [facility] Address [address] [place] [address] Care Team Providers Care Rn Private Duty Name Role Phone Pretty Jarvis MD Primary Care Provider [phone] Lisa Robles MD Unavailable [phone] Allergies No known active allergies Medications albuterol [...] on file Legal Sex Female 6:04 AM HALAL BUTCHER Gender Identity Not on file Sexual Orientation Not on file Last Filed Vital Signs Vital Sign Reading Time Taken Comments Blood Pressure 118/72 05/31/2023 11:21 AM HALAL BUTCHER Pulse 71 05/31/2023 11:21 AM HALAL BUTCHER Temperature 36.7 C (98.1 F) 05/31/2023 11:21 AM HALAL BUTCHER Respiratory Rate 16 05/31/2023 11:21 AM HALAL BUTCHER Oxygen Saturation 98% 05/31/2023 11:21 AM HALAL BUTCHER Inhaled Oxygen Concentration - - Weight 79.4 kg (175 lb) 05/31/2023 11:21 AM HALAL BUTCHER Height 165.1 cm (5' 5) 05/31/2023 11:21 AM HALAL BUTCHER Body Mass Index 29.12 05/31/2023 11:21 AM HALAL BUTCHER Plan of Treatment Health Maintenance Due Date Last Done Comments Cervical Cancer Screening 1989 Depression Screening 1989 Hepatitis C Screening 1989 Varicella Vaccines (1 of 2 - 13+ 2-dose series) 2002 Hepatitis B Screening 12/25/2007 Regular Well Visit/Exam 18-64 12/25/2007 HPV Vaccines (1 - 3-dose SCDM series) 2016 Covid-19 Vaccine ( season) 2024 04/17/2022, 03/02/2021, 06/13/2020, Additional history exists Influenza Vaccine (#1) 2024 , 12/27/2021, 01/29/2021 DTaP/Tdap/Td Vaccine (2 - Td or Tdap) 05/22/2032 05/22/2022 Pneumococcal vaccine <65 Aged Out No longer eligible based on patient's age to complete this topic Insurance [employer] OOS Care Teams Rn Private Duty Relationship Specialty Start Date End Date Pretty Jarvis MD PCP - General 05/28/19 Lisa Robles MD [address] [address] Family Medicine 05/28/19
--- OUTSIDE RECORDS SUMMARY | 2025-02-24 12:10 | XMS_ITS | Clinical Summary ---
Author Organization [facility] Address [address] [place] [address] Care Team Providers Care Rn Telemetry Name Role Phone Unavailable Primary Care Provider Unavailabl e Social History Tobacco Use Types Packs/Day Years Used Date Smoking Tobacco: Never Assessed Comments Unknown Sex and Gender Information Value Date Recorded Sex Assigned at Not on file Legal Sex Female 9:02 AM COMBER TENDER Gender Identity Not on file Sexual Orientation Not on file Plan of Treatment Health Maintenance Due Date Last Done Comments Hepatitis C Virus (HCV) Screening 1989 TdaP Immunization 1989 Hepatitis B Immunization (1 of 3 - 19+ 3-dose series) 2008 Pap Smear 2010 Human Papillomavirus (HPV) Immunization (1 - 3-dose SCDM series) 2016 Cervical Cancer Screening ([facility]) 12/25/2019 HPV/Cotest 12/25/2019 Influenza Immunization (#1) 2024 SARS-COV-2 Immunization ( season) 2024 Respiratory Syncytial Virus (RSV) Immunization (Adult) (1 [...]
--- OUTSIDE RECORDS SUMMARY | 2025-02-24 12:10 | XMS_ITS | Clinical Summary ---
Author Organization [facility] Address [address] [place] [address] Care Team Providers Care Area Director Name Role Phone Unavailable Primary Care Provider Unavailabl e Source Comments [facility],non-owned Affiliates and Associated Physician Practices is amultiple site organization consisting of ambulatory clinics and hospital sitesin [place], [place], [place] and [place]. This disclosure is being madepursuant to the Care Everywhere program and may not contain all information available regarding this patient. Last updated 18.[facility] Allergies No known active allergies Medications * [...] Encounters Date Type Department Care Team Description 01/13/2025 8:28 AM CDT - 01/13/2025 11:59 PM CDT Hospital Encounter [address] [address] Alverto Mabry MD Peterson, Renuka E., MD Pediatric Cardiology Discharge Disposition: Home or Self Care 01/13/2025 8:25 AM CDT - 01/13/2025 8:27 AM CDT Hospital Encounter [address] [address] Merlene Nava MD Discharge Disposition: Home or Self Care 01/07/2025 8:15 AM CDT - 01/07/2025 11:59 PM CDT Hospital Encounter [facility] [address] [place] [address] Alverto Mabry MD Discharge Disposition: Home or Self Care 01/07/2025 Telephone [facility] Care [address] [address] Valentina Crandall Appointment 01/07/2025 Travel 12/10/2024 9:45 AM CDT - 12/10/2024 11:59 PM CDT Hospital Encounter [facility] Care [address] [place] [address] Kameron Urrutia MD CONTACT CENTER AGENT Discharge Disposition: Home or Self Care from [...] on file Legal Sex Female 2:37 PM TUG HAND Gender Identity Not on file Sexual Orientation Not on file Last Filed Vital Signs Vital Sign Reading Time Taken Comments Blood Pressure 104/60 04/09/2019 11:40 AM TUG HAND Pulse 84 04/09/2019 11:40 AM TUG HAND Temperature 36.6 C (97.9 F) 04/09/2019 11:40 AM TUG HAND Respiratory Rate 16 04/09/2019 11:40 AM TUG HAND Oxygen Saturation 98% 04/09/2019 11:40 AM TUG HAND Inhaled Oxygen Concentration - - Weight 72.6 kg (160 lb) 04/09/2019 11:40 AM TUG HAND Height 152.4 cm (5') 04/09/2019 11:40 AM TUG HAND Body Mass Index 31.25 04/09/2019 11:40 AM TUG HAND Plan of Treatment Health Maintenance Due Date Last Done Comments HIV SCREENING 2004 HEPATITIS C SCREENING 12/20/2007 DTAP/TDAP/TD VACCINES (1 - Tdap) 2008 HEPATITIS B VACCINE (1 of 3 - 19+ 3-dose series) 2008 PAP SMEAR 2010 HPV VACCINE (1 - 3-dose SCDM series) 2016 DEPRESSION SCREENING 04/28/2024 OB-ONE HOUR GLUCOSE 11/26/2024 OB-TDAP CURRENT 12/03/2024 05/22/2022 OB-RHOGAM INJECTION 12/10/2024 COVID-19 VACCINE ( season) 2024 04/17/2022, 03/02/2021, 06/13/2020, Additional history exists INFLUENZA VACCINE (#1) 2024 , 12/27/2021, 01/29/2021 OB-GROUP B STREP SCREEN 01/28/2025 ZOSTER VACCINE (1 of 2) 12/25/2039 HIB [...] on patient's age to complete this topic Respiratory Syncytial Virus (RSV) Vaccine Pt: or over 60 yrs (No Doses Required) Completed Procedures Procedure Name Priority Date/Time Associated Diagnosis Comments ECHO COMPLETE CG Routine 01/13/2025 9:12 AM CDT resulting from in vitro fertilization, antepartum (HCC) 32 weeks gestation of (HCC) SONOGRAM - COMPLETE Routine 01/07/2025 8 :25 AM CDT resulting from in vitro fertilization, antepartum (HCC) Encounter for ultrasound to assess growth (HCC) 32 weeks gestation of (HCC) Encounter for follow-up ultrasound of anatomy (HCC) SONOGRAM - COMPLETE Routine 12/10/2024 1 0:18 AM CDT resulting from in vitro fertilization, antepartum (HCC) 27 weeks gestation of (HCC) Encounter for follow-up ultrasound of anatomy ([facility]) Encounter for ultrasound to assess growth (HCC) from Last 3 Months Results * ECHO COMPLETE CG (01/13/2025 9:12 AM CDT) MV E pk michelle 46.44 cm/s [facility] CV F UJI PACS MV A pk michelle 49.3 cm/s [facility] CV F UJI PACS Anatomical Region Laterality Modality Ultrasound 01/13/2025 8:32 AM CDT Narrative 01/13/2025 10:52 AM CDT Name: Nayeli Cowart Patient Exam Info Gender: Female Patient Status: O/P : 1990 Admit Date: 01/13/2025 Exam Date/Time: 01/13/2025 8:32 AM Site: [facility] Current Location: CARE EStaffOrdering Provider: Alverto Mabry Interpreting Physician: Merlene Nava MD Balling Head Tender: Jimmy Hernandez [facility] Study Info Procedure: ECHO COMPLETE CG Indications: O09.819 - resulting from in vitro fertilization, antepartum (HCC) Maternal Gestational Status GA by EDC: 33 wks , 0 days EDC: 03/03/2025 Type: Cottrell Age: 34 yrs Lie: Vertex Summary * The echocardiogram was within normal limits. * Small atrial and ventricular septal defects and persistent ductus arteriosus cannot be excluded as findings. Anatomic Relationships Left sided cardiac apex (levocardia). There is normal visceral-cardiac situs, and normal segmental cardiac anatomical relationship. Systemic Veins There is normal systemic venous return. Pulmonary Veins The visualized pulmonary veins drain normally to the left atrium. Right Atrium The right atrial size is normal. Left Atrium The left atrial size is normal. Atrial Septum Patent foramen ovale with open foramen flap. Color flow is right to left. Right Ventricle The right ventricular cavity size is normal. The right ventricular wall thickness is normal. The right ventricular systolic function is normal. RV Outflow Tract The right ventricular outflow tract is normal. Left Ventricle The left ventricular cavity size is normal. The left ventricular wall thickness is normal. The left ventricular systolic function is normal. Ventricular Septum There is no ventricular septal defect with no shunting. LV Outflow Tract The left ventricular outflow tract is normal. Tricuspid Valve The tricuspid valve is structurally normal. The tricuspid inflow pattern is normal. Tricuspid velocity is within the normal range. There is no tricuspid regurgitation. Mitral Valve The mitral valve is structurally normal. The mitral inflow pattern is normal. Mitral velocity is within the normal range. There is no mitral regurgitation. Aorta aortic arch visualized and is without obstruction by 2D, color flow and Doppler. Pulmonary Arteries The main pulmonary artery is normal, with confluent branch pulmonary arteries. Ductus Arteriosus The antegrade flow velocity and pattern in the ductal arch is normal. A normal ductus arteriosus is appreciated. Doppler Flow in the ductus venosus is normal. The umbilical vein flow pattern is normal. The umbilical artery flow pattern is normal. Hydrops Assessment No pericardial effusion. No ascites present. No pleural effusion(s). Rhythm The rhythm is normal. There is 1:1 AV conduction. Pulmonary Valve The pulmonic valve is normal-sized. The transpulmonic velocity is within normal range. There is no pulmonic regurgitation. Aortic Valve The aortic valve is normal-sized. The transaortic velocity is within normal range. There is no aortic regurgitation. Doppler Measurements (Fetus A) Atrioventricular Valves Name Value Normal Z-Score Percentile Atrioventricular Valves Doppler TV E Peak Velocity 0.6 m/s TV A Peak Velocity 0.6 m/s MV E Peak Velocity 0.5 m/s MV A Peak Velocity 0.5 m/s (Fetus A) Semilunar Valves Name Value Normal Z-Score Percentile Semilunar Valves Doppler PV Peak Velocity. 0.6 m/s AV Peak Velocity () 0.5 m/s (Fetus A) Heart Rate Name Value Normal Z-Score Percentile Heart Rate HR 137 bpm Report Signatures Finalized by Merlene Nava MD on 01/13/2025 10:52 AM Procedure Note Merlene Nava MD - 01/13/2025 Name: Nayeli Cowart Patient Exam Info Gender: Female Patient Status: O/P : 1990 Admit Date: 01/13/2025 Exam Date/Time: 01/13/2025 8:32 AM Site: [facility] Current Location: CARE EStaffOrdering Provider: Alverto Mabry Interpreting Physician: Merlene Nava MD Balling Head Tender: Jimmy Hernandez [facility] Study Info Procedure: ECHO COMPLETE CG Indications: O09.819 - resulting from in vitro fertilization,antepartum (HCC) Maternal Gestational Status GA by EDC: 33 wks , 0 days EDC: 03/03/2025 Type: Cottrell Age: 34 yrs Lie: Vertex Summary * The echocardiogram was within normal limits. * Small atrial and ventricular septal defects and persistent ductus arteriosus cannot be excluded as findings. Anatomic Relationships Left sided cardiac apex (levocardia). There is normal visceral-cardiac situs, and normal segmental cardiac anatomical relationship. Systemic Veins There is normal systemic venous return. Pulmonary Veins The visualized pulmonary veins drain normally to the left atrium. Right Atrium The right atrial size is normal. Left Atrium The left atrial size is normal. Atrial Septum Patent foramen ovale with open foramen flap. Color flow is right toleft. Right Ventricle The right ventricular cavity size is normal. The right ventricularwall thickness is normal. The right ventricular systolic function is normal. RV Outflow Tract The right ventricular outflow tract is normal. Left Ventricle The left ventricular cavity size is normal. The left ventricular wall thickness is normal. The left ventricular systolic function is normal. Ventricular Septum There is no ventricular septal defect with no shunting. LV Outflow Tract The left ventricular outflow tract is normal. Tricuspid Valve The tricuspid valve is structurally normal. The tricuspid inflow patternis normal. Tricuspid velocity is within the normal range. There is notricuspid regurgitation. Mitral Valve The mitral valve is structurally normal. The mitral inflow pattern is normal. Mitral velocity is within the normal range. There is no mitral regurgitation. Aorta aortic arch visualized and is without obstruction by 2D, colorflow and Doppler. Pulmonary Arteries The main pulmonary artery is normal, with confluent branch pulmonary arteries. Ductus Arteriosus The antegrade flow velocity and pattern in the ductal arch is normal.A normal ductus arteriosus is appreciated. Doppler Flow in the ductus venosus is normal. The umbilical vein flow patternis normal. The umbilical artery flow pattern is normal. Hydrops Assessment No pericardial effusion. No ascites present. No pleural effusion(s). Rhythm The rhythm is normal. There is 1:1 AV conduction. Pulmonary Valve The pulmonic valve is normal-sized. The transpulmonic velocity iswithin normal range. There is no pulmonic regurgitation. Aortic Valve The aortic valve is normal-sized. The transaortic velocity is withinnormal range. There is no aortic regurgitation. Doppler Measurements (Fetus A) Atrioventricular Valves Name Value Normal Z-ScorePercentile Atrioventricular Valves Doppler TV E Peak Velocity 0.6 m/s TV A Peak Velocity 0.6 m/s MV E Peak Velocity 0.5 m/s MV A Peak Velocity 0.5 m/s (Fetus A) Semilunar Valves Name Value Normal Z-ScorePercentile Semilunar Valves Doppler PV Peak Velocity. 0.6 m/s AV Peak Velocity () 0.5 m/s (Fetus A) Heart Rate Name Value Normal Z-ScorePercentile Heart Rate HR 137 bpm Report Signatures Finalized by Merlene Nava MD on 01/13/2025 10:52 AM Alverto Mabry MD ECHO CUPID Final Result * Sonogram - Complete (01/07/2025 8:25 AM CDT) Only the most recent of2 resultswithin the time period is included. Linked Results Indication ======== Screening Follow-Up Advanced maternal age (AMA), primigravida Supervision of IVF History ====== OB History 1 Maternal Assessment Physical Exam Height 165 cm, 5 ft 5 in. Weight 86 kg, 190 lb. Initial weight 73 kg, 160 lb. BMI 31.62 kg/m . Initial BMI 26.63 kg/m . Weight gain 14 kg, 30 lb Method ====== Transabdominal ultrasound. View: Sufficient ========= Cottrell . Number of fetuses: 1 Dating ====== Date Details Gest. age MINH LMP 05/26/2024 32 w + 2 d 03/02/2025 Stated MINH 32 w + 1 d 03/03/2025 U/S 01/07/2025 based upon AC, BPD, Femur, HC 32 w + 0 d 03/04/2025 Assigned dating based on stated MINH, selected on 10/15/2024 32 w + 1 d 03/03/2025 General Evaluation Cardiac activity present. FHR 135 bpm. Presentation: cephalic Placenta: Placental site: posterior Umbilical cord: Cord vessels: 3 vessel cord - previously documented. Insertion site: normal insertion - previously documented Amniotic fluid: Amount of AF: normal. MVP 4.0 cm. GABBY 15.5 cm. Q1 3.7 cm, Q2 4.0 cm, Q3 3.7 cm, Q4 4.0 cm Biometry BPD 77.6 mm 31w 1d 15% Hadlock HC 288.3 mm 31w 5d 9% Hadlock AC 290.7 mm 33w 1d 76% Hadlock Femur 61.7 mm 32w 0d 33% Hadlock Humerus 57.5 mm 33w 3d 83% Jennifer HC / AC 0.99 Weight Calculation: EFW 1,975 g 49% Hadlock EFW (lb,oz) 4 lb 6 oz EFW by Hadlock ([id number]) appropriate Growth Overview Exam date GA BPD (mm) HC (mm) AC (mm) FL (mm) HL (mm) EFW (g) 10/15/2024 20w 1d 41.8 5% 169.8 19% 155.7 64% 35.2 76% 33.7 91% 371 75% 11/12/2024 24w 1d 54.6 5% 210.2 6% 206.6 75% 44.9 60% 41.7 72% 728 68% 12/10/2024 28w 1d 65.4 3% 252.9 7% 245.1 62% 55.1 63% 50.2 78% 1247 53% 01/07/2025 32w 1d 77.6 15% 288.3 9% 290.7 76% 61.7 33% 57.5 83% 1975 49% Anatomy The following structures appear normal: Abdomen Stomach. Kidneys. Bladder. Extremities / Skeleton Hands. Right hand. The following structures were documented previously: Head / Neck Cranium. Lateral ventricles. Choroid plexus. Midline falx. Cavum septi pellucidi. Cerebellum. Cisterna magna. Thalami. Nuchal fold. Face Lips. Profile. Nose. Nasal bone. Orbits. Heart / Thorax 4-chamber view. RVOT view. LVOT view. 3-vessel view. 3-hdfmev-zjeaxup view. Situs. Aortic arch view. Bicaval view. Ductal arch view. Great vessels. Right lung. Left lung. Diaphragm. Abdomen Cord insertion. Bowel. Genitals. Spine Cervical spine. Thoracic spine. Lumbar spine. Sacral spine. Extremities / Skeleton Arms. Left hand. Legs. Feet. Impression ========= Single, live, intrauterine at 32w 1d The size is appropriate. The amniotic fluid volume is normal. No major malformations were seen within the limitations of ultrasound Comment ======== ultrasound alone cannot detect all structural, genetic, or functional , placental, or maternal abnormalities Follow-up ======== Follow up ultrasound in 4 weeks for growth assessment is recommended. Coding ====== Diagnoses O09.513: Supervision of elderly primigravida O09.813: Supervision of resulting from assisted reproductive technology Procedures 82874: US Preg Uterus Follow Up [facility] PACS Anatomical Region Laterality Modality Other 01/07/2025 8:25 AM CDT Paul Robb MD [facility] ORDERABLES Edited Result - Final from Last [address] [place] [id number] [facility]
--- OUTSIDE RECORDS SUMMARY | 2025-02-24 12:10 | XMS_ITS | Clinical Summary ---
Author Organization [facility] Address [facility] [place] [address] Care Team Providers Care Fast Food Team Member Name Role Phone Yenny Curtis NP Primary Care Provider [phone] Allergies No known active allergies Medications Cetirizine HCl 10 MG Cap Take by mouth Active PREGNYL 14726 units Recon Soln 5 Active vitamin D2, [...] Sex Assigned at Female 06/04/2024 4:22 PM LIMEHOUSE WORKER Legal Sex Female 10:45 AM LIMEHOUSE WORKER Gender Identity Female 06/04/2024 4:22 PM LIMEHOUSE WORKER Sexual Orientation Straight 06/04/2024 4: 22 PM LIMEHOUSE WORKER Last Filed Vital Signs Vital Sign Reading [...] Years) (1 of 2 - PCV) 2008 HPV Vaccines (1 - 3-dose SCDM series) 2016 Cervical Cancer Screening Pap with HPV Testing (Age 30 to 64) Every 5 Years 12/25/2019 Cervical Cancer Screening with HPV 12/25/2019 COVID-19 Vaccine ( - 2024- season) 2024 04/17/2022, 03/02/2021, 06/13/2020, Additional history exists Influenza Adult (#1) 2025 03/11/2023, 12/27/2021, 01/29/2021 DTaP, Tdap and Td Vaccines (2 - Td or Tdap) 05/22/2032 05/22/2022 RSV Immunization or 60+ Years (1 - 1-dose 75+ series) 2064 PHQ-2 (Physician [place]) Completed 06/04/2024 Hepatitis A Vaccines Aged Out No long er eligible based [...] age to complete this [place] [place] [address] [facility] Care Teams Fast Food Team Member Relationship Specialty Start Date End Date Yenny Curtis, INDUSTRIAL MILLWRIGHT [address] [place] [address] PCP - General NURSE PRACTITIONER 04/13/24
--- NOTE | 2025-02-24 12:35 | PC.NURSE ---
Dr. Saavedra informed of reactive NST, BP's, and lab results. Pt still having contractions every 3-5 mins apart. Order received to offer pt Tylenol and Vistaril for therapeutic rest to see if that helps her contractions since the pt doesn't want to be induced. If pt doesn't want it, she can be discharge to home. Pt to monitor BP's once daily and return if BP is > 140/90 or any other worsening symptom of hypertension or contractions get stronger.
[2025-02-24] MEDS: ACETAMINOPHEN 500 MG TABLET 1000 MG PO (12:49)
== END 2025-02-24 14:41 | disposition home or self-care (01) ==
LOC: ANHOBOP 11:00 → ANHOBPP 11:02
PROVIDERS: PCP Nurse Practitioner Family; Visit Provider Obstetrics & Gynecology
DX: O13.9 Gestational [pregnancy-induced] hypertension without significant proteinuria, unspecified trimester (principal); R82.90 Unspecified abnormal findings in urine; Z3A.00 Weeks of gestation of pregnancy not specified
CPT/HCPCS: 36415; 59025; 80053; 81001; 82570; 84156; 84550; 85025; 85055; 87086; 99199; A9270

== ENCOUNTER 2025-02-25 06:48 | Inpatient (IN) | payer BC, SELFPAY ==
[2025-02-25] VITALS (167 sets, daily range): BP systolic 105–149; BP diastolic 50–108; PULSE 31–135; RESP 16–22; TEMP 35.9–36.7; O2SAT 83–100; BMI 33.7
--- OUTSIDE RECORDS SUMMARY | 2025-02-25 07:24 | XMS_ITS | Clinical Summary ---
Author Organization [facility] Address [address] [place] [address] Care Team Providers Care Hash Slinger Name Role Phone Pretty Jarvis MD Primary Care Provider +1- [phone] Lisa Robles MD Unavailable [phone] Allergies No known active allergies Medications albuterol [...] on file Legal Sex Female 6:04 AM INTERN Gender Identity Not on file Sexual Orientation Not on file Last Filed Vital Signs Vital Sign Reading Time Taken Comments Blood Pressure 118/72 05/31/2023 11:21 AM INTERN Pulse 71 05/31/2023 11:21 AM INTERN Temperature 36.7 C (98.1 F) 05/31/2023 11:21 AM INTERN Respiratory Rate 16 05/31/2023 11:21 AM INTERN Oxygen Saturation 98% 05/31/2023 11:21 AM INTERN Inhaled Oxygen Concentration - - Weight 79.4 kg (175 lb) 05/31/2023 11:21 AM INTERN Height 165.1 cm (5' 5) 05/31/2023 11:21 AM INTERN Body Mass Index 29.12 05/31/2023 11:21 AM INTERN Plan of Treatment Health Maintenance Due Date [...] patient's age to complete this topic Insurance [facility] HMO/PPO Address: [address] [address] [place] [address] [employer] Care Teams Hash Slinger Relationship Specialty Start Date End Date Pretty Jarvis MD PCP - General 05/28/19 Lisa Robles MD [address] [address] Family Medicine 05/28/19
--- OUTSIDE RECORDS SUMMARY | 2025-02-25 07:24 | XMS_ITS | Clinical Summary ---
Author Organization [facility] Address [facility] [place] [address] Care Team Providers Care Tumbler Tender Name Role Phone Yenny Curtis NP Primary Care Provider [phone] Allergies No known active allergies Medications Cetirizine HCl 10 MG Cap Take by mouth Active PREGNYL 75734 units Recon Soln 5 Active vitamin D2, [...] Sex Assigned at Female 06/04/2024 4:22 PM VETERINARY DENTIST Legal Sex Female 10:45 AM VETERINARY DENTIST Gender Identity Female 06/04/2024 4:22 PM VETERINARY DENTIST Sexual Orientation Straight 06/04/2024 4: 22 PM VETERINARY DENTIST Last Filed Vital Signs Vital Sign Reading [...] - 1-dose 75+ series) 2064 PHQ-2 (Physician [place]) Completed 06/04/2024 Hepatitis A Vaccines Aged Out [...] complete [place] [place] [address] [facility] Care Teams Tumbler Tender Relationship Specialty Start Date End Date Yenny Curtis, LAPPING MACHINE TENDER [address] [place] [address] PCP - General NURSE PRACTITIONER 04/13/24
--- OUTSIDE RECORDS SUMMARY | 2025-02-25 07:24 | XMS_ITS | Clinical Summary ---
Author Organization [facility] Address [address] [place] [address] Care Team Providers Care Doughnut Maker Name Role Phone Unavailable Primary Care Provider Unavailabl e Source Comments [facility],non-owned Affiliates and Associated Physician Practices is amultiple site organization consisting of ambulatory clinics and hospital sitesin [place], [place], [place] and [place]. This disclosure is being madepursuant to the Care Everywhere program and may not contain all information available regarding this patient. Last updated 18.[facility] Allergies No known active allergies [...] - 01/13/2025 11:59 PM CDT Hospital Encounter [address] [address] Alverto Mabry MD Peterson, Renuka E., MD Pediatric Cardiology Discharge Disposition: Home or Self Care 01/13/2025 8:25 AM CDT - 01/13/2025 8:27 AM CDT Hospital Encounter [address] [address] Merlene Nava MD Discharge Disposition: Home or Self Care 01/07/2025 8:15 AM CDT - 01/07/2025 11:59 PM CDT Hospital Encounter [facility] Maternal & Care [address] [place] [address] Alverto Mabry MD Discharge Disposition: Home or Self Care 01/07/2025 Telephone [facility] Care [address] [address] Valentina Crandall Appointment 01/07/2025 Travel 12/10/2024 9:45 AM CDT - 12/10/2024 11:59 PM CDT Hospital Encounter [facility] Maternal & Care [address] [place] [address] Kameron Urrutia MD DENTAL LABORATORY TECHNICIAN APPRENTICE Discharge Disposition: Home or Self Care from [...] on file Legal Sex Female 2:37 PM PAVING FOREMAN Gender Identity Not on file Sexual Orientation Not on file Last Filed Vital Signs Vital Sign Reading Time Taken Comments Blood Pressure 104/60 04/09/2019 11:40 AM PAVING FOREMAN Pulse 84 04/09/2019 11:40 AM PAVING FOREMAN Temperature 36.6 C (97.9 F) 04/09/2019 11:40 AM PAVING FOREMAN Respiratory Rate 16 04/09/2019 11:40 AM PAVING FOREMAN Oxygen Saturation 98% 04/09/2019 11:40 AM PAVING FOREMAN Inhaled Oxygen Concentration - - Weight 72.6 kg (160 lb) 04/09/2019 11:40 AM PAVING FOREMAN Height 152.4 cm (5') 04/09/2019 11:40 AM PAVING FOREMAN Body Mass Index 31.25 04/09/2019 11:40 AM PAVING FOREMAN Plan of Treatment Health Maintenance Due Date [...] (HCC) Encounter for follow-up ultrasound of anatomy ([facility]) Encounter for ultrasound to assess growth [...] 01/13/2025 Exam Date/Time: 01/13/2025 8:32 AM Site: [facility] Current Location: CARE EStaffOrdering Provider: Alverto Mabry Interpreting Physician: Merlene Nava MD Manager Pacu: Jimmy Hernandez [facility] Study Info Procedure: ECHO COMPLETE CG [...] 01/13/2025 Exam Date/Time: 01/13/2025 8:32 AM Site: [facility] Current Location: CARE EStaffOrdering Provider: Alverto Mabry Interpreting Physician: Merlene Nava MD Manager Pacu: Jimmy Hernandez [facility] Study Info Procedure: ECHO COMPLETE CG [...] 1 Dating ====== Date Details Gest. age MNIH LMP 05/26/2024 32 w + 2 d [...] Amount of AF: normal. MVP 4.0 cm. GABYB 15.5 cm. Q1 3.7 cm, Q2 4.0 [...] 4 lb 6 oz EFW by Hadlock ([id number]) appropriate Growth Overview Exam date GA BPD [...] view. RVOT view. LVOT view. 3-vessel view. 8-cilvlx-hgixalj view. Situs. Aortic arch view. Bicaval view. [...] of resulting from assisted reproductive technology Procedures 21300: US Preg Uterus Follow Up [facility] PACS Anatomical Region Laterality Modality Other 01/07/2025 8:25 AM CDT Paul Robb MD [facility] ORDERABLES Edited Result - Final from Last [address] [place] [id number] [facility]
[2025-02-25] MEDS: AMPICILLIN SODIUM 2 GM in SODIUM CHLORIDE 0.9% IV 100 ML 200 ML IVPB (07:50)
[2025-02-25] MEDS: LACTATED RINGERS 1,000 ML 125 ML IV CONT ×3 (07:51→15:54)
[2025-02-25 08:00] LABS: Hematocrit 35.6 % (37.0-47.0); Hemoglobin 11.2 g/dL (12.0-15.0); Immature Granulocyte Percent A 0.4 % (0-0.5); Immature Platelet Fraction Pct 8.3 % (0.9-11.2); Lymphocytes Absolute Auto 1.63 K/mm3 (0.9-3.2); Mean Corpuscular HGB Conc 31.5 g/dl (32-36); Mean Corpuscular Hemoglobin 24.5 pg (26-34); Mean Corpuscular Volume 77.9 fl (80-100); Nucleated Red Blood Cells Absolute Auto 0.000 K/mm3 (0.0-0.012); Nucleated Red Blood Cells Perc 0.0 % (0.0-0.2); Platelet Count Result 134 k/mm3 (150-375); Red Blood Count 4.57 M/mm3 (4.2-5.4); White Blood Count 7.0 K/mm3 (4.5-10.0)
--- NOTE | 2025-02-25 08:19 | LDADM ---
This patient, Nayeli Cowart, was admitted to Labor/Delivery/Recovery 106 on 02/25/25 at 06:48. Plans for labor, pain management and were discussed with patient. Patient/family oriented to hospital policies and general routines including ID bracelet, bed and alarms, visiting hours, pain management, procedures, bathroom and other care routines, personal items, smoking policy, room service/diet and guest tray routines, infant security routines, and visiting hours. Patient/Family are encouraged to report perceived risks to care and to ask questions if they do not understand what they are told or what they should do. See OBIX for further documentation.
[2025-02-25 08:36] LABS: OBXCEM ROM Plus Positive (Negative)
[2025-02-25] MEDS: OXYTOCIN 30 UNITS/NS 500 ML 30 UNITS/500 ML BAG IV CONT (10:20)
[2025-02-25 10:55] LABS: Syphilis IgG/IgM Antibody Non-Reactive (Nonreactive)
[2025-02-25] MEDS: AMPICILLIN SODIUM 1 GM in SODIUM CHLORIDE 0.9% IV 50 ML 100 ML IVPB ×2 (11:48→15:53)
[2025-02-25] MEDS: TERBUTALINE SULFATE 1 MG/ML VIAL 0.25 MG SUB-Q (15:29)
--- NOTE | 2025-02-25 16:17 | P.PNOB_ITS ---
OB - PN: Subj Subjective Date/time seen: 02/25/25 1330 fht 120 cat 1, cervix 4/75/-2, forebag palpable AROM clear. Continue pitocin augmentation. OB - PN: Obj Data Labs 02/25/25 07:31 Labs: Laboratory Results - last 24 hr 02/25/25 02/25/25 07:08 07:31 WBC 7.0 RBC 4.57 Hgb 11.2 L Hct 35.6 L MCV 77.9 L MCH 24.5 L MCHC 31.5 L RDW 15.9 H Plt Count 134 L MPV 12.9 H Immature Gran % (Auto) 0.4 Neut % (Auto) 69.6 Lymph % (Auto) 23.2 [place] % (Auto) 5.1 Eos % (Auto) 1.4 Baso % (Auto) 0.3 Lymph # (Auto) 1.63 [place] # (Auto) 0.4 Eos # (Auto) 0.1 Baso # (Auto) 0.0 Abs Immat Gran (auto) 0.03 Absolute Neuts (auto) 4.9 Absolute Nucleated RBC 0.000 Nucleated RBC % 0.0 % Immature Plt Fraction 8.3 Membranes Rupture Rom plus positive Syphilis IgG/IgM Ab Non-reactive Blood Type O Positive Antibody Screen Negative OB - PN A/P Time Spent With Patient Time: Total time spent is greater than 50% in coordination of care (as documented) at patient's floor/unit and/or counseling patient:
--- NOTE | 2025-02-25 16:17 | PM.IMHP ---
H&P: HPI History of Present Illness Date/Time: 02/25/25 16:17 Chief Complaint: Leaking of fluid Narrative: She is a 34 y/o G1 at 39 weeks presented with c/o LOF at 0300. ROM confirmed. Cervix 2.5/60%/-2 regular contractions. PNC significant for AMA, IVF conception/ h/o depression/anxiety stable on Sertraline. Positive GBS. Review of Systems Review of Systems: All systems reviewed & are unremarkable except as noted in HPI and below Constitutional: Constitutional: Reports no additional constitutional complaints and Denies headache(s) Eyes: Eyes: Denies spots in vision ENT: Reports system reviewed and no additional complaints, except as documented and Denies headache(s) Cardiovascular: Cardiovascular: Denies chest pain and Denies dyspnea Respiratory: Respiratory: Denies dyspnea Gastrointestinal: Gastrointestinal: Reports no additional gastrointestinal complaints Genitourinary: Genitourinary: Reports amenorrhea Musculoskeletal: Musculoskeletal: Reports no additional musculoskeletal complaints Integumentary/Breasts: Skin/Breast: Denies breast mass and Denies rash Neurologic: Denies headache(s) Psychiatric: Psychiatric: Reports no additional psychiatric complaints [facility] Past Medical History Medical History Asthma Arthritis Anxiety Allergies Surgical History Surgical History S/P lumpectomy, right breast 2011 Family History Family History Grandparent Depression Diabetes mellitus Breast cancer Cancer of kidney Mother Asthma Depression Hypertension Father Depression Sibling Asthma Depression Social History Social History Smoking status: Never smoker Second hand tobacco smoke exposure: Yes (Spouse) Alcohol intake: former Substance use: never Do You Feel Safe in your Home?: Yes Lack of Transportation: No Lack of Food: Never True Current Housing: I Have Housing Concerned About Future Housing: No Difficulty Paying Gas/Electric Bills: No Difficulty Paying for Meds: No Currently Unemployed: No Education: Master's Degree or Higher Difficulty w/ Childcare or Family Care: No Living arrangements: with family Gender identity (if verbalized by the patient): Female Sexual Orientation (if Verbalized by the Patient): Straight or Heterosexual Spiritual care concerns: No Agree to blood products: Yes Meds Home Medications and Allergies Home Medications ?Medication ?Instructions ?Recorded ?Confirmed ?Type cholecalciferol (vitamin D3) 10 10 mcg PO DAILY 09/16/24 02/25/25 History mcg (400 unit) capsule cyanocobalamin (vitamin B-12) 1,000 mcg PO DAILY 09/16/24 02/25/25 History 1,000 mcg capsule vitamins no.167-folic 1 tablet PO DAILY 09/16/24 02/25/25 History acid 400 mcg-dha 25 mg chewable tablet (One-A-Day ) sertraline 50 mg tablet 50 mg PO DAILY #90 tabs 09/16/24 02/25/25 Rx ferrous sulfate 325 mg (65 mg 325 mg PO DAILY 12/24/24 02/25/25 History iron) tablet clindamycin phosphate 1 % topical 1 applic topical BID #60 grams 01/20/25 02/24/25 Rx gel cetirizine 10 mg capsule (All Day 10 mg PO DAILY PRN allergy symptoms 02/04/25 02/25/25 History Allergy (cetirizine)) triamcinolone acetonide 0.1 % 1 applic topical TID PRN external 02/17/25 02/24/25 Rx topical cream vaginal itching #15 grams Allergies Allergy/AdvReac Type Severity Reaction Status Date / Time No Known Allergies Allergy Mild Verified 02/25/25 08:31 Vital Signs Vital Signs - 24 hr 02/25/25 07:30 02/25/25 07:30 02/25/25 07:45 Temperature 97.7 F Pulse Rate 73 Blood Pressure 132/81 Pulse Oximetry Oxygen Delivery Room Air 02/25/25 08:00 02/25/25 08:07 02/25/25 08:12 Temperature Pulse Rate 74 Blood Pressure 122/82 Pulse Oximetry 99 100 Oxygen Delivery 02/25/25 08:15 02/25/25 08:17 02/25/25 08:19 Temperature Pulse Rate 61 Blood Pressure 138/89 Pulse Oximetry 100 90 Oxygen Delivery 02/25/25 08:24 02/25/25 08:25 02/25/25 08:30 Temperature Pulse Rate 66 Blood Pressure 118/76 Pulse Oximetry 100 100 100 Oxygen Delivery 02/25/25 08:35 02/25/25 08:38 02/25/25 08:39 Temperature Pulse Rate Blood Pressure Pulse Oximetry 100 87 L 100 Oxygen Delivery 02/25/25 08:52 02/25/25 08:57 02/25/25 08:59 Temperature Pulse Rate Blood Pressure Pulse Oximetry 100 100 100 Oxygen Delivery 02/25/25 08:59 02/25/25 09:03 02/25/25 09:03 Temperature Pulse Rate Blood Pressure Pulse Oximetry 100 100 100 Oxygen Delivery 02/25/25 09:10 02/25/25 09:12 02/25/25 09:15 Temperature Pulse Rate 73 66 79 Blood Pressure 129/89 127/85 128/76 Pulse Oximetry 100 100 Oxygen Delivery 02/25/25 09:17 02/25/25 09:19 02/25/25 09:20 Temperature Pulse Rate 71 72 Blood Pressure 121/73 118/70 Pulse Oximetry 100 Oxygen Delivery 02/25/25 09:21 02/25/25 09:24 02/25/25 09:25 Temperature 97.8 F Pulse Rate 69 72 Blood Pressure 122/66 120/67 Pulse Oximetry 100 Oxygen Delivery 02/25/25 09:27 02/25/25 09:30 02/25/25 09:33 Temperature Pulse Rate 72 68 73 Blood Pressure 122/62 121/58 L 117/62 Pulse Oximetry 100 Oxygen Delivery 02/25/25 09:35 02/25/25 09:36 02/25/25 09:37 Temperature Pulse Rate 72 Blood Pressure 114/67 Pulse Oximetry 100 100 Oxygen Delivery 02/25/25 09:39 02/25/25 09:42 02/25/25 09:43 Temperature Pulse Rate 65 66 Blood Pressure 122/71 108/66 Pulse Oximetry 98 100 Oxygen Delivery 02/25/25 09:45 02/25/25 09:48 02/25/25 09:53 Temperature Pulse Rate 68 Blood Pressure 118/66 Pulse Oximetry 100 100 Oxygen Delivery 02/25/25 09:58 02/25/25 10:00 02/25/25 10:03 Temperature Pulse Rate 67 Blood Pressure 117/79 Pulse Oximetry 99 100 Oxygen Delivery 02/25/25 10:08 02/25/25 10:13 02/25/25 10:18 Temperature Pulse Rate Blood Pressure Pulse Oximetry 100 100 100 Oxygen Delivery 02/25/25 10:23 02/25/25 10:28 02/25/25 10:30 Temperature Pulse Rate 69 Blood Pressure 115/73 Pulse Oximetry 100 100 Oxygen Delivery 02/25/25 10:33 02/25/25 10:38 02/25/25 10:43 Temperature Pulse Rate Blood Pressure Pulse Oximetry 100 100 100 Oxygen Delivery 02/25/25 10:48 02/25/25 10:53 02/25/25 10:54 Temperature Pulse Rate Blood Pressure Pulse Oximetry 100 100 100 Oxygen Delivery 02/25/25 10:54 02/25/25 10:59 02/25/25 11:00 Temperature Pulse Rate 61 Blood Pressure 121/76 Pulse Oximetry 100 100 Oxygen Delivery 02/25/25 11:04 02/25/25 11:06 02/25/25 11:11 Temperature Pulse Rate Blood Pressure Pulse Oximetry 100 100 98 Oxygen Delivery 02/25/25 11:16 02/25/25 11:27 02/25/25 11:30 Temperature Pulse Rate 76 Blood Pressure 108/82 Pulse Oximetry 100 100 100 Oxygen Delivery 02/25/25 11:35 02/25/25 11:40 02/25/25 11:45 Temperature Pulse Rate Blood Pressure Pulse Oximetry 100 100 100 Oxygen Delivery 02/25/25 11:48 02/25/25 11:50 02/25/25 11:55 Temperature 97.8 F Pulse Rate Blood Pressure Pulse Oximetry 100 100 Oxygen Delivery 02/25/25 12:00 02/25/25 12:05 02/25/25 12:10 Temperature Pulse Rate 59 L Blood Pressure 123/77 Pulse Oximetry 100 100 83 L Oxygen Delivery 02/25/25 12:10 02/25/25 12:15 02/25/25 12:20 Temperature Pulse Rate Blood Pressure Pulse Oximetry 87 L 100 100 Oxygen Delivery 02/25/25 12:25 02/25/25 12:30 02/25/25 12:35 Temperature Pulse Rate 58 L Blood Pressure 105/68 Pulse Oximetry 100 100 100 Oxygen Delivery 02/25/25 12:35 02/25/25 12:35 02/25/25 12:36 Temperature Pulse Rate Blood Pressure Pulse Oximetry 98 98 98 Oxygen Delivery 02/25/25 12:36 02/25/25 12:41 02/25/25 12:46 Temperature Pulse Rate Blood Pressure Pulse Oximetry 100 100 100 Oxygen Delivery 02/25/25 12:50 02/25/25 12:55 02/25/25 12:59 Temperature Pulse Rate Blood Pressure Pulse Oximetry 100 100 95 Oxygen Delivery 02/25/25 12:59 02/25/25 12:59 02/25/25 13:00 Temperature Pulse Rate 69 Blood Pressure 123/86 Pulse Oximetry 95 95 Oxygen Delivery 02/25/25 13:04 02/25/25 13:09 02/25/25 13:14 Temperature Pulse Rate Blood Pressure Pulse Oximetry 100 100 99 Oxygen Delivery 02/25/25 13:19 02/25/25 13:24 02/25/25 13:29 Temperature 97.4 F L Pulse Rate Blood Pressure Pulse Oximetry 100 100 100 Oxygen Delivery 02/25/25 13:34 02/25/25 13:39 02/25/25 13:44 Temperature Pulse Rate Blood Pressure Pulse Oximetry 100 98 100 Oxygen Delivery 02/25/25 13:49 02/25/25 13:49 02/25/25 13:49 Temperature Pulse Rate Blood Pressure Pulse Oximetry 100 98 93 Oxygen Delivery 02/25/25 13:54 02/25/25 13:57 02/25/25 13:57 Temperature Pulse Rate Blood Pressure Pulse Oximetry 100 100 100 Oxygen Delivery 02/25/25 14:00 02/25/25 14:02 02/25/25 14:07 Temperature Pulse Rate 51 L Blood Pressure 114/74 Pulse Oximetry 100 100 Oxygen Delivery 02/25/25 14:08 02/25/25 14:08 02/25/25 14:13 Temperature Pulse Rate Blood Pressure Pulse Oximetry 100 100 100 Oxygen Delivery 02/25/25 14:18 02/25/25 14:23 02/25/25 14:28 Temperature Pulse Rate Blood Pressure Pulse Oximetry 100 100 100 Oxygen Delivery 02/25/25 14:29 02/25/25 14:30 02/25/25 14:34 Temperature Pulse Rate 51 L Blood Pressure 108/69 Pulse Oximetry 100 100 Oxygen Delivery 02/25/25 14:56 02/25/25 14:58 02/25/25 15:00 Temperature Pulse Rate 57 L Blood Pressure 125/80 Pulse Oximetry 100 100 Oxygen Delivery 02/25/25 15:03 02/25/25 15:08 02/25/25 15:13 Temperature Pulse Rate Blood Pressure Pulse Oximetry 100 100 100 Oxygen Delivery 02/25/25 15:18 02/25/25 15:23 02/25/25 15:28 Temperature Pulse Rate Blood Pressure Pulse Oximetry 100 100 100 Oxygen Delivery 02/25/25 15:30 02/25/25 15:33 02/25/25 15:38 Temperature Pulse Rate Blood Pressure 149/108 H Pulse Oximetry 100 100 Oxygen Delivery 02/25/25 15:41 02/25/25 15:46 02/25/25 15:47 Temperature Pulse Rate 79 Blood Pressure 114/50 L Pulse Oximetry 100 100 Oxygen Delivery 02/25/25 15:51 02/25/25 15:56 02/25/25 16:00 Temperature Pulse Rate 82 Blood Pressure 137/79 Pulse Oximetry 100 100 Oxygen Delivery 02/25/25 16:01 02/25/25 16:06 02/25/25 16:11 Temperature Pulse Rate Blood Pressure Pulse Oximetry 100 100 98 Oxygen Delivery 02/25/25 16:16 Temperature Pulse Rate Blood Pressure Pulse Oximetry 99 Oxygen Delivery Exam Const: General: no acute distress Eyes: General: appearance normal, both eyes and all related structures Resp: Effort & Inspection: normal respiratory effort Cardio: Rate: regular rate GI: Other: Gravid no fundal tenderness no right upper quadrant pain Skin: General skin exam: no rashes or lesions noted Neuro: Cognition (Neuro): normal cognition Extrem: General: normal to inspection Psych: Mental Status: mental status grossly normal H&P: Results Labs Labs: Short CBC 02/25/25 Range/Units 07:31 WBC 7.0 (4.5-10.0) K/mm3 Hgb 11.2 L (12.0-15.0) g/dL Hct 35.6 L (37.0-47.0) % Plt Count 134 L (150-375) k/mm3 Assessment and Plan Assessment and plan (1) Spontaneous rupture of membranes: Status: Acute Assessment and Plan: Admit Pitocin augmentation if needed. (2) GBS carrier: Code(s): Z22.330 - Carrier of Group B streptococcus Status: Acute Assessment and Plan: Ampicillin.
--- NOTE | 2025-02-25 16:20 | PM.OBPNVD ---
OB - PN: Subj Subjective Date/time seen: 02/25/25 1545 Called due to bradycardia. Lasted approximately 13 minutes.Episode of tachysystole preceding decel, Pitocin stopped. Resolved with Terbutaline and change in pt position. Cervix 5/90/-2. OB - PN: Obj Data Labs 02/25/25 07:31 Labs: Laboratory Results - last 24 hr 02/25/25 02/25/25 07:08 07:31 WBC 7.0 RBC 4.57 Hgb 11.2 L Hct 35.6 L MCV 77.9 L MCH 24.5 L MCHC 31.5 L RDW 15.9 H Plt Count 134 L MPV 12.9 H Immature Gran % (Auto) 0.4 Neut % (Auto) 69.6 Lymph % (Auto) 23.2 [place] % (Auto) 5.1 Eos % (Auto) 1.4 Baso % (Auto) 0.3 Lymph # (Auto) 1.63 [place] # (Auto) 0.4 Eos # (Auto) 0.1 Baso # (Auto) 0.0 Abs Immat Gran (auto) 0.03 Absolute Neuts (auto) 4.9 Absolute Nucleated RBC 0.000 Nucleated RBC % 0.0 % Immature Plt Fraction 8.3 Membranes Rupture Rom plus positive Syphilis IgG/IgM Ab Non-reactive Blood Type O Positive Antibody Screen Negative OB - PN A/P Time Spent With Patient Time: Total time spent is greater than 50% in coordination of care (as documented) at patient's floor/unit and/or counseling patient:
[2025-02-25] MEDS: ACETAMINOPHEN 500 MG TABLET 1000 MG PO ×2 (16:56→21:24)
[2025-02-25] MEDS: ONDANSETRON INJ 4 MG/2 ML VIAL IV PUSH (17:02)
[2025-02-25] MEDS: FAMOTIDINE 20 MG/2 ML VIAL IV PUSH (17:03)
--- NOTE | 2025-02-25 17:09 | PM.OBPNVD ---
OB - PN: Subj Subjective Date/time seen: 02/25/25 17:09 Interval history: After pitocin resumed, she started having late decelerations. Cervix 5/90/-2 caput. She was recommended for primary section for intolerance to labor. Reviewed risk and benefits of section and risk of continuing labor. She agrees with proceeding with primary section. OB - PN: Obj Data Labs 02/25/25 07:31 Labs: Laboratory Results - last 24 hr 02/25/25 02/25/25 07:08 07:31 WBC 7.0 RBC 4.57 Hgb 11.2 L Hct 35.6 L MCV 77.9 L MCH 24.5 L MCHC 31.5 L RDW 15.9 H Plt Count 134 L MPV 12.9 H Immature Gran % (Auto) 0.4 Neut % (Auto) 69.6 Lymph % (Auto) 23.2 [place] % (Auto) 5.1 Eos % (Auto) 1.4 Baso % (Auto) 0.3 Lymph # (Auto) 1.63 [place] # (Auto) 0.4 Eos # (Auto) 0.1 Baso # (Auto) 0.0 Abs Immat Gran (auto) 0.03 Absolute Neuts (auto) 4.9 Absolute Nucleated RBC 0.000 Nucleated RBC % 0.0 % Immature Plt Fraction 8.3 Membranes Rupture Rom plus positive Syphilis IgG/IgM Ab Non-reactive Blood Type O Positive Antibody Screen Negative OB - PN A/P Time Spent With Patient Time: Total time spent is greater than 50% in coordination of care (as documented) at patient's floor/unit and/or counseling patient:
--- NOTE | 2025-02-25 18:16 | W.PM.OBCSD ---
OB - Delivery Note Procedure Delivery date: 02/25/25 Pre-op diagnosis: Decelerations and Positive Group B Strep (GBS) Post-op Diagnosis: Same ( intolerance to labor) Delivery augmentation: Rupture of Membranes and Pitocin Delivery monitor: External FHT and Internal Uterine Prior to decision for section, ACOG/SMFM labor guidelines were considered and discussed with the patient and staff. Decision made to proceed with the section.: Yes Procedure Performed: Primary Surgeon: Paul Saavedra MD Anesthesia type: Epidural Description of Procedure/Findings: Female, OT, normal fallopian tubes and ovaries and uterus. Apgars 8,9. 8gx73hr. After informed consent, risks and benefits of the procedure was discussed with the patient. The patient was taken to the operating room where she was placed in the dorsal lithotomy position with leftward tilt. After the prior placed epidural anesthesia was found to be adequate, she was then prepped and draped in the usual sterile fashion. A Pfannenstiel skin incision was made with a scalpel and carried through to the underlying layer of fascia. The fascia was then nicked in the midline, extending bilaterally. The fascia was dissected off the rectus muscles bluntly and sharply, superiorly and inferiorly. The rectus muscles were in the midline, and peritoneum was identified and entered bluntly. The pelvic organs were visualized. The bladder blade was then inserted. The vesicouterine peritoneum was identified and entered sharply with Metzenbaum scissors and extended bilaterally and then the bladder flap was created digitally. The low transverse uterine incision was then made with the scalpel and extended with bilateral index fingers in a crescent-shaped fashion. The head was delivered and the rest of the was delivered. The was delivered. The cord was clamped twice and cut. The infant's nose and mouth was suctioned with a bulb and baby was then handed off to the awaiting pediatric staff. The placenta was then delivered manually. The uterine cavity was sponge curetted. The uterus was then exteriorized. The uterine incision was then closed with 0 vicryl in a running locked fashion. A second layer was approximated with 0 vicryl. Hemostasis noted. The posterior cul de sac was irrigated. The uterus was then returned to the abdomen. Bilateral gutters were cleared off all clots and debris. The uterine incision was noted to be hemostatic. Interceed placed on uterine incision and vertically on front of uterus. The peritoneum was approximated with 3.0 vicryl. The muscle bellies were inspected and noted to be hemostatic. The subfascial layer was noted to be hemostatic, and the fascia was closed with 0 Vicryl in a running fashion. The subcutaneous layer was then approximated with 3-0 Vicryl. The skin was closed with 4.0 vicryl. Skin dermabond applied at incision. All instruments, needle, and lap counts were correct x3. The patient was taken to the recovery room in stable condition. Estimated Blood Loss: 465 Urine Output: 450 Drains: No Packing: No Pathology: None sent Complications: No immediate complications Condition: Stable Disposition: Floor [place] Baby Date of : 02/25/25 Time of : 17:34 Gestational Age by Date: 39 Infant gender: Female Weight (pounds): 6 Weight (ounces): 12 presentation: vertex position: Left Occiput Transverse Placenta delivery description: Manual Removal Cord Vessel Description: 3 Vessels and Clamped/Cut score one minute: 8 score five minutes: 9
[2025-02-25] MEDS: OXYTOCIN 30 UNITS/NS 500 ML 30 UNITS/500 ML BAG 125 UNITS IV CONT (18:40)
[2025-02-25] MEDS: KETOROLAC 15 MG/ML VIAL (*BKC) IV PUSH (21:24)
--- NOTE | 2025-02-25 21:45 | OBPPTRN ---
Patient transferred to post room #290 via stretcher at 20:42. Support person and infant present. Oriented to unit, room, information board, rooming in, admission packet and security measures. Patient verbalizes understanding.
[2025-02-25] MEDS: DEXTROSE 5%/0.45% SOD CHL 1,000 ML 125 ML IV CONT (23:43)
[2025-02-26 00:15] VITALS: BP 117/76; PULSE 74; RESP 18; TEMP 36; O2SAT 99
[2025-02-26] MEDS: KETOROLAC 15 MG/ML VIAL (*BKC) IV PUSH ×2 (04:06→10:19)
[2025-02-26] MEDS: ACETAMINOPHEN 500 MG TABLET 1000 MG PO ×4 (04:06→22:31)
[2025-02-26 04:10] VITALS: BP 116/81; PULSE 75; RESP 16; TEMP 36.1; O2SAT 98
[2025-02-26 05:15] LABS: Hematocrit 30.3 % (37.0-47.0); Hemoglobin 9.5 g/dL (12.0-15.0); Immature Granulocyte Percent A 0.3 % (0-0.5); Immature Platelet Fraction Pct 7.3 % (0.9-11.2); Lymphocytes Absolute Auto 1.11 K/mm3 (0.9-3.2); Mean Corpuscular HGB Conc 31.4 g/dl (32-36); Mean Corpuscular Hemoglobin 24.6 pg (26-34); Mean Corpuscular Volume 78.5 fl (80-100); Nucleated Red Blood Cells Absolute Auto 0.000 K/mm3 (0.0-0.012); Nucleated Red Blood Cells Perc 0.0 % (0.0-0.2); Platelet Count Result 114 k/mm3 (150-375); Red Blood Count 3.86 M/mm3 (4.2-5.4); White Blood Count 7.4 K/mm3 (4.5-10.0)
[2025-02-26] MEDS: DEXTROSE 5%/0.45% SOD CHL 1,000 ML 125 ML IV CONT (07:33)
--- NOTE | 2025-02-26 09:04 | PM.OBPNVD ---
OB - PN: Subj Subjective Date/time seen: 02/26/25 09:04 Interval history: she denies flatus denies leg pain. Itching improved. Lochia decreasing. Patient comments: pain well controlled, tolerating diet and flatus present baby status: doing well OB - PN: Obj Data Labs 02/26/25 04:09 Labs: Laboratory Results - last 24 hr 02/25/25 02/26/25 07:31 04:09 WBC 7.4 RBC 3.86 L Hgb 9.5 L Hct 30.3 L MCV 78.5 L MCH 24.6 L MCHC 31.4 L RDW 15.9 H Plt Count 114 L MPV 12.6 H Immature Gran % (Auto) 0.3 Neut % (Auto) 80.1 H Lymph % (Auto) 15.0 L [place] % (Auto) 4.2 Eos % (Auto) 0.3 Baso % (Auto) 0.1 L Lymph # (Auto) 1.11 [place] # (Auto) 0.3 Eos # (Auto) 0.0 Baso # (Auto) 0.0 Abs Immat Gran (auto) 0.02 Absolute Neuts (auto) 5.9 Absolute Nucleated RBC 0.000 Nucleated RBC % 0.0 % Immature Plt Fraction 7.3 Syphilis IgG/IgM Ab Non-reactive OB - PN A/P Assessment and Plan (1) Delivery by section: Status: Acute Assessment and Plan: postop day 1. Doing well. Continue routine postop care. Time Spent With Patient Time: Total time spent is greater than 50% in coordination of care (as documented) at patient's floor/unit and/or counseling patient: Review of Systems Review of Systems: All systems reviewed & are unremarkable except as noted in HPI and below Exam Const: General: comfortable and no acute distress Resp: Effort & Inspection: normal respiratory effort GI: Other: Incision intact fundus firm at umbilicus Neuro: General: patient oriented x3 Extrem: General: normal to inspection and no calf tenderness Psych: Mental Status: mental status grossly normal Affect: normal affect
[2025-02-26 10:10] VITALS: BP 111/77; PULSE 76; RESP 18; TEMP 36.9; O2SAT 100
[2025-02-26] MEDS: MULTIVIT/MIN/PREN/FOL AC/IRON TABLET 1 TAB PO (10:21)
[2025-02-26] MEDS: SIMETHICONE 80 MG TAB.CHEW PO ×4 (10:21→23:57)
[2025-02-26] MEDS: DOCUSATE SODIUM 100 MG CAPSULE PO ×2 (10:21→16:33)
[2025-02-26] MEDS: SERTRALINE HCL 50 MG TABLET PO (10:21)
--- NOTE | 2025-02-26 12:15 | PC.NURSE ---
Patient called out for a latch check. Baby's temperature has been low twice so we tried to feed with her swaddled so she doesn't drop her temp again. Baby was very eager and latched to the right breast in football hold. The initial latch on was shallow so mom was shown how to break suction and start over. Baby was able to latch to the breast, nipple was everted, and we attempted to reposition latch so that it was comfortable for mom. She states that it is very painful and she feels that the shield helps reduce pain. A shield was provided and patient shown how to apply. Baby latched to the shield but did not suck. Mom is advised to keep baby as close to the breast as possible so that the shield is not sliding in and out of her mouth. We attempted to waken her to feed but were unsuccessful. It has been only 2 hours since the last breast feeding so mom is encouraged to watch for feeding cues and to allow baby to rest awhile longer. Patient is educated on initiating pumping while using the nipple shield. She is supported to pump as often as is manageable for her. Reviewed pump and shield cleaning and expected volumes of milk in the immediate period. Patient will call for a latch check when is ready to feed again. Primary RN updated.
--- NOTE | 2025-02-26 12:50 | PC.NURSE ---
Patient called out for another latch check. Baby is latched to the right breast in football hold with the nipple shield. She is suckling intermittently with stimulation. The latch appears to be optimal and mom states that she does feel some nipple soreness. Reviewed latch on tenderness versus consistent pain or pinching throughout the feeding. She states that her nipples are extremely sensitive and that she is not even able to allow the water in the shower to touch them. Encouraged her to continue keeping infant's head close to the breast to prevent slipping of the shield. She is planning to pump with her personal breast pump after this feeding. We discussed how to use expressed milk, with drops being put in baby's mouth or using a syringe to draw up small volumes. She knows milk is good at room temperature for 4 hours. She is supported to expect that she will only get drops with the pump at this time. Father present and very supportive. Patient is encouraged to call for additional help at any time. Primary RN updated.
--- NOTE | 2025-02-26 13:05 | WPDANLDPN2 ---
Anes-Prog Note L&D Date/Time: 02/26/25 13:05 Comfortable throughout: section Neuraxial method: epidural Epidural/Spinal procedure site: clean & non-tender Neuro status: Neuro function grossly intact. Cardiovascular status: normal Respiratory status: normal Airway patency: baseline Mental status: baseline Post-Op hydration status: normal Vital Signs: Last Vital Signs Temp 36.9 C 02/26/25 10:10 Pulse 76 02/26/25 10:10 Resp 18 02/26/25 10:10 BP 111/77 02/26/25 10:10 Pulse Ox 100 02/26/25 10:10 O2 Del Method Room Air 02/25/25 20:30 Pain score (VAS): 3 I/O: Intake & Output 02/25/25 02/26/25 02/26/25 23:59 07:59 15:59 Intake Total 0 979.2 1000 Output Total 915 1200 1000 Balance -915 -220.8 0 Post-procedural complaints: none Patient feedback: Patient satisfied with anesthetic care.
--- NOTE | 2025-02-26 13:06 | WPDANLDNPN2 ---
Anes-Prog Note L&D-Neuraxial Date/Time: 02/26/25 13:06 Neuraxial medications: epidural PF morphine Opiod-related complaints: none Patient feedback: Patient satisfied with post-operative pain management.
[2025-02-26 16:20] VITALS: BP 126/84; PULSE 74; RESP 18; TEMP 36.5; O2SAT 99
[2025-02-26] MEDS: IBUPROFEN 600 MG TABLET PO ×2 (16:33→22:31)
[2025-02-26 19:15] VITALS: BP 115/80; PULSE 70; RESP 16; TEMP 36.6; O2SAT 98
[2025-02-26 22:55] VITALS: BP 124/76; PULSE 76; RESP 16; TEMP 36.3; O2SAT 99
--- NOTE | 2025-02-27 01:11 | PC.NURSE ---
Daylight Savings Time For Daylight Savings Time Ending in the Fall - Clocks are moved back. For [facility], the time of change occurs at 0200 hrs. Time is taken from the staff anesthesiologist. This entry on the patient's chart recognizes the change in time reflected during documentation. Example: 2 entries for vital signs may be charted for 0200 hrs.
[2025-02-27] MEDS: ACETAMINOPHEN 500 MG TABLET 1000 MG PO ×4 (03:50→21:59)
[2025-02-27] MEDS: IBUPROFEN 600 MG TABLET PO ×4 (03:50→21:59)
--- NOTE | 2025-02-27 06:48 | P.PNOB_ITS ---
OB - PN: Subj Subjective Date/time seen: 02/27/25 06:48 Interval history: she denies flatus denies leg pain. Itching improved. Lochia decreasing. Patient comments: pain well controlled, tolerating diet and other (Decreasing lochia.) [place] baby status: doing well and nursing well OB - PN: Obj Data Labs 02/26/25 04:09 OB - PN A/P Plan day: 1 Plan: routine care Comments: Patient doing well. Routine care. Time Spent With Patient Time: Total time spent is greater than 50% in coordination of care (as documented) at patient's floor/unit and/or counseling patient: Exam 2 GI: Other: incision intact Psych: Affect: normal affect Other: Abd: fundus firm below umbilicus, nontender Perineum: healing Ext: nontender
[2025-02-27] MEDS: SIMETHICONE 80 MG TAB.CHEW PO ×2 (09:43→16:13)
[2025-02-27] MEDS: MULTIVIT/MIN/PREN/FOL AC/IRON TABLET 1 TAB PO (09:43)
[2025-02-27] MEDS: SERTRALINE HCL 50 MG TABLET PO (09:44)
[2025-02-27] MEDS: DOCUSATE SODIUM 100 MG CAPSULE PO ×2 (09:44→16:13)
[2025-02-27 09:45] VITALS: BP 126/80; PULSE 73; RESP 18; TEMP 36.2; O2SAT 98
[2025-02-27] MEDS: oxyCODONE HCL (*CRX) 5 MG TAB IR PO ×2 (12:47→16:59)
[2025-02-27 17:00] VITALS: BP 133/89; PULSE 70; RESP 18; TEMP 36.7; O2SAT 98
[2025-02-27 18:40] VITALS: BP 131/86; PULSE 78; RESP 16; TEMP 36.6; O2SAT 100
[2025-02-27 23:50] VITALS: BP 131/86; PULSE 79; RESP 16; TEMP 36.3; O2SAT 97
[2025-02-28] MEDS: IBUPROFEN 600 MG TABLET PO ×2 (04:09→10:12)
[2025-02-28] MEDS: ACETAMINOPHEN 500 MG TABLET 1000 MG PO ×2 (04:09→10:12)
--- NOTE | 2025-02-28 06:47 | P.PNOB_ITS ---
OB - PN: Subj Subjective Date/time seen: 02/28/25 06:47 Interval history: she denies flatus denies leg pain. Itching improved. Lochia decreasing. Patient comments: pain well controlled, tolerating diet and other (Decreasing lochia.) [place] baby status: doing well and nursing well OB - PN: Obj Data Labs 02/26/25 04:09 OB - PN A/P Assessment and Plan (1) Delivery by section: Status: Acute Assessment and Plan: POD3. Doing well. Plan day: 3 Plan: routine care Comments: Patient doing well. Discharge home today. Time Spent With Patient Time: Total time spent is greater than 50% in coordination of care (as documented) at patient's floor/unit and/or counseling patient: Exam 2 Const: General: comfortable and no acute distress Resp: Effort & Inspection: normal respiratory effort GI: Other: incision intact Psych: Mental Status: mental status grossly normal Affect: normal affect Other: Abd: fundus firm below umbilicus, nontender Ext: nontender
[2025-02-28 09:15] VITALS: BP 130/92; PULSE 66; RESP 18; TEMP 36.7; O2SAT 99
[2025-02-28] MEDS: SIMETHICONE 80 MG TAB.CHEW PO (09:16)
[2025-02-28] MEDS: SERTRALINE HCL 50 MG TABLET PO (09:16)
[2025-02-28] MEDS: MULTIVIT/MIN/PREN/FOL AC/IRON TABLET 1 TAB PO (09:16)
[2025-02-28] MEDS: DOCUSATE SODIUM 100 MG CAPSULE PO (09:16)
[2025-02-28] MEDS: oxyCODONE HCL (*CRX) 5 MG TAB IR PO (09:17)
--- NOTE | 2025-02-28 09:38 | PM.OBDSVD ---
DS: Admitting Diagnosis Discharge Date 02/28/2025 Admitting Diagnosis Spontaneous rupture of membranes DS: Discharge Diagnosis Discharge Diagnosis (1) Delivery by section: Status: Acute (2) intolerance to labor, delivered, current hospitalization: Code(s): O77.9 - Labor and delivery complicated by stress, unspecified Status: Acute OB - DS: Summary OB Procedures : Ultrasound OB Procedures Intrapartum: OB Procedures: : None Peripartum Data Procedures: Procedures Operation Date: 02/25/25 16:50 Actual Procedure Side Surgeon p Section Not Applicable Paul Saavedra MD complications: none Status at Discharge Functional status at discharge: independent ambulation Time Spent with Patient Time attestation: Total time spent providing and/or coordinating discharge services: Exam Const: General: cooperative Orientation/consciousness: oriented to person, oriented to place and oriented to time HENMT: Face/Nose/Sinus: Normal external nose present Eyes: General: appearance normal, both eyes and all related structures Resp: Effort & Inspection: normal respiratory effort GI: Inspection: normal to inspection Other: incision intact no drainage Skin: General skin exam: normal color Neuro: General: oriented to person, oriented to place and oriented to time Extrem: General: normal to inspection and no calf tenderness Psych: Appearance: grossly normal Mental Status: mental status grossly normal Discharge Plan Discharge Attending physician on discharge: Paul Saavedra Consulting providers: Gwen Grace Discharging Clinician: Paul Saavedra Anticipated Discharge Date/Time: 02/28/25 09:40 Patient Disposition: Home Activity: may shower, no straining, no driving, follow weight bearing status and pelvic rest Diet: regular Patient Instructions: Antibiotic Form Patient Language: Turkmen Stand Alone Forms: General Discharge Information Follow-up/Referrals: Paul Saavedra MD [Physician, GEOPHYSICAL MANAGER] - 2 Weeks Referral Note: Call for appointment Discharge Medications: New oxycodone 5 mg Tablet 5 mg PO Q4H PRN (Reason: Pain Rated 4-6) Qty: 20 0RF Continued One-A-Day 400 mcg- 25 mg tablet,chewable 1 tablet PO DAILY sertraline 50 mg tablet 50 mg PO DAILY Qty: 90 1RF ferrous sulfate 325 mg (65 mg iron) tablet 325 mg PO DAILY triamcinolone acetonide 0.1 % cream 1 applic topical TID PRN (Reason: external vaginal itching) Qty: 15 0RF Discontinued cholecalciferol (vitamin D3) 10 mcg (400 unit) capsule 10 mcg PO DAILY cyanocobalamin (vitamin B-12) 1,000 mcg capsule 1,000 mcg PO DAILY All Day Allergy (cetirizine) 10 mg capsule 10 mg PO DAILY PRN (Reason: allergy symptoms) clindamycin phosphate 1 % gel 1 applic topical BID Qty: 60 0RF Date of admission: 02/25/25 06:48 Primary Care Provider: Yenny Florentino Admitting Provider: Paul Saavedra Attending physician on admission: Paul Saavedra Condition: Stable
--- NOTE | 2025-02-28 13:10 | PC.NURSE ---
Patient viewed the discharge video Mother & Baby Care, The First Two Weeks. Patient was given the opportunity and encouraged to ask questions. Patient verbalized understanding of information shared and has been given the mother/baby guide for home reference.
[2025-03-02 13:13] VITALS: BP 133/81; PULSE 68; RESP 18; TEMP 36.9; O2SAT 100
== END 2025-02-28 13:37 | disposition home or self-care (01) | DRG 788 ==
LOC: ANHLDR 07:21 → ANHOB2 20:48
PROVIDERS: Admitting Provider Obstetrics & Gynecology; PCP Nurse Practitioner Family; Visit Provider Obstetrics & Gynecology
PROC: 10D00Z1 Extraction of Products of Conception, Low, Open Approach (ICD-10-PCS; CPT 59514; principal; 2025-02-25 16:50)
DX: O99.824 Streptococcus B carrier state complicating childbirth (principal); Z3A.39 39 weeks gestation of pregnancy; Z37.0 Single live birth; O99.344 Other mental disorders complicating childbirth; F41.9 Anxiety disorder, unspecified; F32.A Depression, unspecified; O76 Abnormality in fetal heart rate and rhythm complicating labor and delivery
CPT/HCPCS: 36415; 84112; 85025; 85055; 86593; 86850; 86900; 86901; A9270; J0290; J1200; J1885; J2004; J2274; J2371; J2405; J2590; J2795; J3105; J7120